=== PATIENT | male | born 1965 | race African-American/Black ===

== ENCOUNTER → 2021-08-08 11:10 | Outpatient (CLI) | payer OTHER, SELFPAY | PROVIDERS: Visit Provider Nurse Practitioner | DX: U07.1 COVID-19 (principal) | CPT/HCPCS: C9803; U0003; U0005 ==

== ENCOUNTER → 2023-09-29 14:14 | Outpatient (POV) | payer OTHER, SELFPAY ==
--- NOTE | 2023-09-29 14:21 | A.OFFVIS_ITS ---
HPI Data of Consult Patient: new to practice Consult date: 09/29/23 Requesting Physician: Margie Cantrell APRN Consult Narrative Reason for consult: Bilateral shoulder pain History of present illness: Mr. Ramirez is a 58 year old male who presents today as a new patient. He is a referral from [facility]. Today he rates his pain a 7 out of 10. Patient states he has pain in both shoulders. Patient states this has been going on for over a year and a half. 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 Patient does state the left shoulder is the worst shoulder and he feels like now that his right is bothering him more due to overcompensating. He describes his pain as a constant nagging pain that does interfere with sleeping as well as activities of daily living such as cooking and cleaning. Patient does state he is trying to hold off having shoulder surgery as long as possible. He does state that he has had injections in the past that would typically provide more than 50% improvement lasting several months. He does state that he was scheduled to have repeat injections in August however he was very busy with his work and was unable to get this done and was scheduled for follow-up this month however had issues with insurance. Patient has tried over-the- counter Tylenol and ibuprofen along with heat and ice and topicals with minimal relief. Patient has had physical therapy that did help. He has continued to do at home exercising and stretching for longer than 6 weeks with minimal relief. Patient is not on any scheduled medications. His Rl has been reviewed and is appropriate. CC: Margie Cantrell APRN [facility] Disclaimer: The information contained in this section may have been updated after the patient was seen, as this information can be updated by other users. Medical History (Updated 09/29/23 @ 14:58 by Margie Cantrell APRN) Cancer Diabetes HLD (hyperlipidemia) Surgical History (Updated 09/29/23 @ 14:57 by Shanthi Salgado RN) History of prostate surgery Family History (Updated 09/29/23 @ 14:56 by Shanthi Salgado RN) Other Cancer Diabetes Hyperlipidemia Social History Smoking Status: Never smoker alcohol intake: never substance use type: marijuana current occupational status: employed Travel in the last 8 weeks: None Review of Systems Review of Systems Review of systems:: pertinent systems reviewed and negative unless documented below Review of systems (narrative): Review of Systems: General: No recent weight changes, no fever, no sleep disturbances Respiratory: No cough, no shortness of air, no recurring pulmonary infections Cardiovascular/peripheral vascular: No chest pain, no palpitations, no edema, no shortness of breath Gastrointestinal: No new onset incontinence, normal bowel movements reported Genitourinary: No new onset incontinence Musculoskeletal: Bilateral shoulder pain Psychiatric: [Normal mood/affect] Neurological: [Denies weakness in extremities], [denies balance issues] Meds Home Medications and Allergies Home Medications Medication Instructions Recorded Confirmed Type atorvastatin 20 mg tablet 20 mg PO DAILY 11/23/18 08/19/19 History diclofenac sodium 75 mg 75 mg PO BID 11/23/18 08/19/19 History tablet,delayed release amoxicillin 500 mg capsule 500 mg PO Q12H sinus 10 days #20 08/19/19 08/19/19 Rx caps New Prescriptions to Start Prescriptions: Allergies Allergy/AdvReac Type Severity Reaction Status Date / Time No Known Allergies Allergy Verified 08/19/19 16:20 Objective Narrative: Physical Exam: General: Alert and oriented x3, no acute distress, pleasant and cooperative Lungs: Respirations even and unlabored, symmetrical chest expansion Eyes: PERRL Musculoskeletal: Flexion and extension of bilateral shoulders somewhat guarded secondary to pain Neurological: Speech clear, no gross sensory deficit Additional findings Additional findings: [facility] Left shoulder MRI without contrast 09/05/2022 Findings: Multiplanar MR imaging of the left shoulder was performed without contrast. Motion on many of the images decreases exam sensitivity. Small intrasubstance tear at the footprint of the supraspinatus tendon. There is an intrasubstance tear of the infraspinatus tendon involving less than 50% of the tendon thickness. There is no full-thickness rotator cuff tendon tear. There is moderate AC joint degenerative change. There is magnetic susceptibility artifact posteriorly and laterally that obscures some detail. A small amount of fluid is seen in the subacromial/subdeltoid bursa. The glenoid labrum is intact. The long head of the biceps tendon is intact. No significant glenohumeral joint effusion is seen. There is no evidence of fracture or dislocation. The musculature is intact. No evidence of soft tissue mass Documentation from orthopedics provider: Right shoulder AC joint arthrosis with partial rotator cuff tear Assessment and Plan *Assessment and plan (1) Bilateral shoulder pain: Status: Acute Qualifiers: Chronicity: chronic Qualified Code(s): M25.511 - Pain in right shoulder; M25.512 - Pain in left shoulder; G89.29 - Other chronic pain Category: Medical Code(s): M25.511 - Pain in right shoulder; M25.512 - Pain in left shoulder (2) Osteoarthritis of shoulders, bilateral: Status: Acute Qualifiers: Osteoarthritis type: unspecified Qualified Code(s): M19.011 - Primary osteoarthritis, right shoulder; M19.012 - Primary osteoarthritis, left shoulder Category: Medical Code(s): M19.011 - Primary osteoarthritis, right shoulder; M19.012 - Primary osteoarthritis, left shoulder Plan Patient is experiencing significant pain in his bilateral shoulders with limited range of motion. I have discussed with the patient that he may benefit from repeat intra-articular shoulder injections as well as possible suprascapular nerve blocks in the future. Risk and benefits of the intra-articular injections were explained to the patient and he would like to proceed forward with this plan of care. Patient has tried and failed conservative therapy such as oral medications, heat and ice, topicals, physical therapy, at home stretching exercise for longer than 6 weeks. Patient has had intra-articular injections in the past that did provide more than 50% relief lasting more than 3 months. I will also order the patient a compounded cream. Patient will be scheduled for bilateral intra-articular shoulder injections. Patient has been instructed to contact the clinic with any concerns before the next appointment. Dr. Sofia has reviewed this note and agrees with this plan of care. This note was dictated using voice recognition software and make contain errors or omissions.
[2023-09-29 14:55] VITALS: BP 134/79; PULSE 67; RESP 18; O2SAT 98; BMI 23.5
== END ==
PROVIDERS: PCP Nurse Practitioner Family; Visit Provider Nurse Practitioner Family
DX: M25.511 Pain in right shoulder (principal); M25.512 Pain in left shoulder; G89.29 Other chronic pain; M19.012 Primary osteoarthritis, left shoulder; M19.011 Primary osteoarthritis, right shoulder
CPT/HCPCS: 99202; G0463

== ENCOUNTER 2023-10-14 11:12 | Day surgery (SDC) | payer OTHER, SELFPAY ==
[2023-10-14 11:32] VITALS: BP 123/77; PULSE 75; RESP 16; TEMP 36.6; O2SAT 100; BMI 22.7
--- NOTE | 2023-10-14 11:52 | P.PCN_ITS ---
Procedure Date: 10/14/23 Time: 11:50 Anesthesiologist:: Jonathan Delacruz CRNA Complications:: None Pre-procedure Diagnosis:: DJD bilateral shoulders. Chronic bilateral shoulder pain. Post-procedure Diagnosis:: Same. Indications for Procedure:: Patient is a very pleasant 58-year-old male that comes our clinic today for bilateral intra-articular shoulder injections. Patient demonstrates 5/5 strength bilateral arms. However, limited range of motion secondary to shoulder pain bilaterally. He rates his pain 7/10. Procedure Details:: Informed consent was obtained risk and benefits of the procedure were explained to the patient. Patient was taken to the procedure room. The bilateral shoulder was prepped using ChloraPrep. A 25-gauge needle was used first anteriorly, laterally, and then posteriorly to inject 10 mL bupivacaine 0.25% and Depo- Medrol 40 mg. Same procedure was carried out in the left shoulder. Patient tolerated procedure without difficulty. There are no complications. Plan and Disposition:: Patient was discharged without incident.
[2023-10-14] MEDS: BUPIVACAINE 0.25% 10ML INJ 25 MG IJ (11:54)
[2023-10-14] MEDS: LIDOCAINE 1% 5ML PF VIAL 5 ML (11:54)
[2023-10-14] MEDS: methylPREDNISolone ACETATE 80MG/ML VIAL 80 MG (11:54)
[2023-10-14 11:55] VITALS: BP 128/58; PULSE 64; RESP 18; O2SAT 99
[2023-10-14 11:58] VITALS: BP 128/58; PULSE 68; RESP 18; O2SAT 99
[2023-10-14 12:00] VITALS: BP 133/85; PULSE 63; RESP 16; O2SAT 100
== END 2023-10-14 12:00 | disposition home or self-care (01) ==
PROVIDERS: PCP Nurse Practitioner Family; Visit Provider Nurse Anesthetist, Certified Registered
DX: M19.011 Primary osteoarthritis, right shoulder (principal); M19.012 Primary osteoarthritis, left shoulder; M25.511 Pain in right shoulder; M25.512 Pain in left shoulder; G89.29 Other chronic pain
CPT/HCPCS: 20610; J1040

== ENCOUNTER → 2023-10-31 14:13 | Outpatient (POV) | payer OTHER, SELFPAY ==
--- NOTE | 2023-10-31 14:17 | A.OFFVIS_ITS ---
[facility] Pain Management SOAP Note Subjective:: Patient is a pleasant 58-year-old male who presents today for follow-up of bilateral shoulder intra-articular injections on 10/14/2023. We are currently treating the patient for bilateral shoulder pain, osteoarthritis. Today he rates his pain a 4 out of 10. Patient denies any new trauma or injury. He does state that he has had at least 50% improvement following this injection and feels like he has been able to increase his activity with decreased pain symptoms. Patient does state he has overall improved function. Patient does also state that his compounded cream has provided additional relief. His Rl has been reviewed and is appropriate. Review of Systems: General: No recent weight changes, no fever, no sleep disturbances Respiratory: No cough, no shortness of air, no recurring pulmonary infections Cardiovascular/peripheral vascular: No chest pain, no palpitations, no edema, no shortness of breath Gastrointestinal: No new onset incontinence, normal bowel movements reported Genitourinary: No new onset incontinence Musculoskeletal: Shoulder pain Psychiatric: [Normal mood/affect] Neurological: [Denies weakness in extremities], [denies balance issues] Objective:: Physical Exam: General: Alert and oriented x3, no acute distress, pleasant and cooperative Lungs: Respirations even and unlabored, symmetrical chest expansion Eyes: PERRL Musculoskeletal: Flexion and extension of bilateral shoulders somewhat guarded secondary to pain, [antalgic gait noted] Neurological: Speech clear, no gross sensory deficit Assessment:: Bilateral shoulder pain, osteoarthritis shoulders Plan:: Patient has had significant improvement of his bilateral shoulder pain and does not require any additional injection therapy at this time. Patient will return to clinic in 1 month for reevaluation of symptoms and plan of care. Patient has been instructed to contact the clinic with any concerns before the next appointment. Dr. Sofia has reviewed this note and agrees with this plan of care. This note was dictated using voice recognition software and make contain errors or omissions. [facility] Disclaimer: The information contained in this section may have been updated after the patient was seen, as this information can be updated by other users. Medical History Cancer Diabetes HLD (hyperlipidemia) Surgical History History of prostate surgery Family History Other Cancer Diabetes Hyperlipidemia Social History Smoking Status: Never smoker alcohol intake: never substance use type: marijuana current occupational status: employed Travel in the last 8 weeks: None
[2023-10-31 14:58] VITALS: BP 143/91; PULSE 78; RESP 18; O2SAT 97; BMI 22.7
== END ==
LOC: SC.PAIN 14:13
PROVIDERS: Visit Provider Nurse Practitioner Family
DX: M19.011 Primary osteoarthritis, right shoulder (principal); M19.012 Primary osteoarthritis, left shoulder; M25.511 Pain in right shoulder; M25.512 Pain in left shoulder
CPT/HCPCS: 99212; G0463

== ENCOUNTER 2023-11-26 13:38 | Outpatient (POV) | payer OTHER, SELFPAY ==
--- NOTE | 2023-11-26 14:44 | A.OFFVIS_ITS ---
[facility] Pain Management SOAP Note Subjective:: Patient is a pleasant 58-year-old male who presents today for follow-up. We are currently treating the patient for bilateral shoulder pain/osteoarthritis bilateral shoulders today he rates his pain a 7 out of 10. Patient states he has continued to get significant improvement on his right shoulder following his intra-articular injection however states that the left shoulder is starting to increase in pain. He denies any new trauma or injury. He does state that the left shoulder is still much better than when he originally started coming to our office however he has noticed that the aching, throbbing sensation is starting to increase and is experiencing little bit more limited range of motion. Patient did previously have at least 50% improvement in both shoulders following this first intra-articular injections. He states he is interested in repeating the injection in his left shoulder due to the pain now interfering with his ability to perform activities of daily living such as cooking and cleaning. Patient is still using his compounded cream and states that helps additionally. His Rl has been reviewed and is appropriate. Review of Systems: General: No recent weight changes, no fever, no sleep disturbances Respiratory: No cough, no shortness of air, no recurring pulmonary infections Cardiovascular/peripheral vascular: No chest pain, no palpitations, no edema, no shortness of breath Gastrointestinal: No new onset incontinence, normal bowel movements reported Genitourinary: No new onset incontinence Musculoskeletal: Left shoulder pain Psychiatric: [Normal mood/affect] Neurological: [Denies weakness in extremities], [denies balance issues] Objective:: Physical Exam: General: Alert and oriented x3, no acute distress, pleasant and cooperative Lungs: Respirations even and unlabored, symmetrical chest expansion Eyes: PERRL Musculoskeletal: Flexion and extension of left shoulder somewhat guarded secondary to pain, [antalgic gait noted] Neurological: Speech clear, no gross sensory deficit Assessment:: Bilateral shoulder pain/osteoarthritis bilateral shoulders Plan:: Patient continues to get significant relief in his right shoulder however he is experiencing worsening pain in his left shoulder. I have discussed with the patient that he may benefit from a repeat intra-articular shoulder injection. Risk and benefits were discussed with patient and he would like to proceed forward with this plan of care. Patient did previously get 50% relief following his initial injection lasting approximately 1 month. Patient will be scheduled for a left shoulder intra-articular injection. Patient has been instructed to contact the clinic with any concerns before the next appointment. Dr. Sofia has reviewed this note and agrees with this plan of care. This note was dictated using voice recognition software and make contain errors or omissions. [facility] Disclaimer: The information contained in this section may have been updated after the patient was seen, as this information can be updated by other users. Medical History HLD (hyperlipidemia) Diabetes Cancer Surgical History History of prostate surgery Family History Other Cancer Diabetes Hyperlipidemia Social History Smoking Status: Never smoker alcohol intake: never substance use type: marijuana current occupational status: employed Travel in the last 8 weeks: None
[2023-11-26 15:10] VITALS: BP 130/78; PULSE 64; RESP 18; O2SAT 100; BMI 22.7
== END 2023-11-26 23:59 ==
LOC: SC.PAIN 13:39
PROVIDERS: Visit Provider Nurse Practitioner Family
DX: M19.011 Primary osteoarthritis, right shoulder (principal); M19.012 Primary osteoarthritis, left shoulder; M25.511 Pain in right shoulder; M25.512 Pain in left shoulder
CPT/HCPCS: 99212; G0463

== ENCOUNTER 2023-12-19 11:54 | Day surgery (SDC) | payer OTHER, SELFPAY ==
[2023-12-19 12:09] VITALS: BP 136/62; PULSE 74; RESP 16; TEMP 36.4; O2SAT 97; BMI 22.7
[2023-12-19] MEDS: BUPIVACAINE 0.25% 10ML INJ 25 MG IJ (12:18)
[2023-12-19] MEDS: LIDOCAINE 1% 5ML PF VIAL 5 ML (12:18)
[2023-12-19] MEDS: methylPREDNISolone ACETATE 80MG/ML VIAL 80 MG (12:18)
[2023-12-19 12:19] VITALS: BP 129/75; PULSE 66; RESP 18; O2SAT 99
[2023-12-19 12:20] VITALS: BP 129/75; PULSE 66; RESP 18; O2SAT 99
[2023-12-19 12:22] VITALS: BP 131/79; PULSE 66; RESP 16; O2SAT 97
--- NOTE | 2023-12-19 12:30 | P.PCN_ITS ---
Procedure Date: 12/19/23 Time: 12:10 Anesthesiologist:: Jonathan Delacruz CRNA Complications:: None Pre-procedure Diagnosis:: DJD left shoulder. Chronic left shoulder pain. Post-procedure Diagnosis:: Same. Indications for Procedure:: Patient is a very pleasant 58-year-old male comes our clinic today for intra- articular left shoulder injection. Patient demonstrates 5/5 strength. However, limited range of motion secondary to pain. He rates his pain 6/10. Procedure Details:: Procedure Details: Left shoulder intra-articular injection Informed consent was obtained risk and benefits of the procedure were explained to the patient. Patient was taken to the procedure room. The left shoulder was prepped using ChloraPrep. A 25-gauge needle was used first anteriorly, laterally, and then posteriorly to inject 10 mL bupivacaine 0.25% and Depo-M edrol 40 mg. Patient tolerated procedure well with no complications. Plan and Disposition:: Patient was discharged without incident.
== END 2023-12-19 12:22 | disposition home or self-care (01) ==
LOC: SC.PAINP 11:54
PROVIDERS: PCP Nurse Practitioner Family; Visit Provider Nurse Anesthetist, Certified Registered
DX: M19.012 Primary osteoarthritis, left shoulder (principal); M25.512 Pain in left shoulder; G89.29 Other chronic pain
CPT/HCPCS: 20610; J1010

== ENCOUNTER 2024-01-05 13:37 | Outpatient (POV) | payer OTHER, SELFPAY ==
[2024-01-05 13:49] VITALS: BP 109/55; PULSE 62; RESP 18; TEMP 36.8; O2SAT 98; BMI 23.0
--- NOTE | 2024-01-05 14:12 | A.OFFVIS_ITS ---
[facility] Pain Management SOAP Note Subjective:: Patient is a pleasant 58-year-old male who presents today for follow-up of left intra-articular shoulder injection on 12/19/2023. Today he rates his pain a 1 out of 10 in his left shoulder however states his right shoulder is an 8 out of 10. Patient does state he at least had 50 to 60% relief in the left shoulder and feels like it still helping. He does state he has had overall improved function and more range of motion since having this injection done. Patient does state that he regrets not going ahead and doing both shoulders when he was scheduled for this injection due to the worsening pain on the right side. Patient does not describe this as a chronic aching, throbbing sensation with limited range of motion and interferes with his ability perform activities of daily living such as cooking and cleaning. Patient does state that he has worked today and this seems to have aggravated his overall right shoulder pain. He is interested in repeating his injection for the right shoulder. He is prescribed compounded cream and states this is still helping him significantly. His Rl has been reviewed and is appropriate. Review of Systems: General: No recent weight changes, no fever, no sleep disturbances Respiratory: No cough, no shortness of air, no recurring pulmonary infections Cardiovascular/peripheral vascular: No chest pain, no palpitations, no edema, no shortness of breath Gastrointestinal: No new onset incontinence, normal bowel movements reported Genitourinary: No new onset incontinence Musculoskeletal: Right shoulder pain Psychiatric: [Normal mood/affect] Neurological: [Denies weakness in extremities], [denies balance issues] Objective:: Physical Exam: General: Alert and oriented x3, no acute distress, pleasant and cooperative Lungs: Respirations even and unlabored, symmetrical chest expansion Eyes: PERRL Musculoskeletal: Flexion and extension of right shoulder somewhat guarded secondary to pain, [antalgic gait noted] Neurological: Speech clear, no gross sensory deficit Assessment:: Bilateral shoulder pain, osteoarthritis Plan:: Patient is experiencing worsening pain in his right shoulder with limited range of motion. I have reviewed over the risk and benefits of the intra-articular injection and recommended that we can do his right shoulder due to the worsening pain. Patient would like to proceed forward with this plan of care. We will schedule the patient for a right shoulder intra-articular injection. Patient does on average get at least 50% relief following these injections lasting on average more than a month. Patient has been instructed to contact the clinic with any concerns before the next appointment. Dr. Sofia has reviewed this note and agrees with this plan of care. This note was dictated using voice recognition software and make contain errors or omissions. [facility] Disclaimer: The information contained in this section may have been updated after the patient was seen, as this information can be updated by other users. Medical History HLD (hyperlipidemia) Diabetes Cancer Surgical History History of prostate surgery Family History Other Cancer Diabetes Hyperlipidemia Social History Smoking Status: Never smoker alcohol intake: never substance use type: marijuana current occupational status: other Travel in the last 8 weeks: None
== END 2024-01-05 23:59 ==
LOC: SC.PAIN 13:38
PROVIDERS: Visit Provider Nurse Practitioner Family
DX: M19.011 Primary osteoarthritis, right shoulder (principal); M19.012 Primary osteoarthritis, left shoulder; M25.511 Pain in right shoulder; M25.512 Pain in left shoulder
CPT/HCPCS: 99212; G0463

== ENCOUNTER 2024-01-06 10:05 | Outpatient (CLI) | payer OTHER, SELFPAY | END 2024-01-06 23:59 | disposition home or self-care (01) | LOC: LAB.DROPOF 01-07 10:05 | PROVIDERS: PCP Student in an Organized Health Care Education/Training Program; Visit Provider Student in an Organized Health Care Education/Training Program | DX: N39.0 Urinary tract infection, site not specified (principal) | CPT/HCPCS: 87086 ==

== ENCOUNTER 2024-02-10 11:53 | Day surgery (SDC) | payer OTHER, SELFPAY ==
[2024-02-10 12:16] VITALS: BP 108/75; PULSE 65; RESP 18; TEMP 36.5; O2SAT 100; BMI 22.7
[2024-02-10 12:34] VITALS: BP 133/75; PULSE 56; RESP 18; O2SAT 97
--- NOTE | 2024-02-10 12:34 | P.PCN_ITS ---
Procedure Date: 02/10/24 Time: 12:15 Anesthesiologist:: Jonathan Delacruz CRNA Complications:: None Pre-procedure Diagnosis:: DJD right shoulder. Chronic right shoulder pain. Post-procedure Diagnosis:: Same. Indications for Procedure:: Is a very pleasant 58-year-old male that comes our clinic today for repeat right intra-articular shoulder injection of cortisone. Patient has had significant improvement in terms of his right shoulder pain with previous injections in the right shoulder. He rates his pain today 4/10. Procedure Details:: Procedure Details: Right shoulder intra-articular injection Informed consent was obtained risk and benefits of the procedure were explained to the patient. Patient was taken to the procedure room. The right shoulder was prepped using ChloraPrep. A 25-gauge needle was used first anteriorly, laterally, and then posteriorly to inject 10 mL bupivacaine 0.25% and Depo- Medrol 40 mg. Patient tolerated procedure well with no complications. Plan and Disposition:: Patient was discharged without incident.
[2024-02-10] MEDS: BUPIVACAINE 0.25% 10ML INJ 25 MG IJ (12:56)
[2024-02-10] MEDS: methylPREDNISolone ACETATE 80MG/ML VIAL 80 MG (12:56)
[2024-02-10] MEDS: LIDOCAINE 1% 5ML PF VIAL 5 ML (12:56)
== END 2024-02-10 12:35 | disposition home or self-care (01) ==
PROVIDERS: Visit Provider Nurse Anesthetist, Certified Registered
DX: M19.011 Primary osteoarthritis, right shoulder (principal); M25.511 Pain in right shoulder; G89.29 Other chronic pain
CPT/HCPCS: 20610

== ENCOUNTER 2024-02-19 16:16 | Emergency (ER) | payer OTHER, SELFPAY ==
[2024-02-19 16:25] VITALS: BP 132/78; PULSE 76; RESP 20; TEMP 36.8; O2SAT 97; BMI 22.8
--- NOTE | 2024-02-19 16:41 | ED_ITS ---
Discharge Plan Disposition Patient Disposition: Home, Self-Care Condition: Good Prescriptions Prescriptions: No Action atorvastatin 20 mg tablet 20 mg PO DAILY meloxicam 15 mg tablet 15 mg PO DAILY Patient Comments: TAKE 1 TABLET BY MOUTH ONCE DAILY Referrals Follow up/Referrals: Provider,Referral, [Primary Care Provider] - See instructions Royce Cantrell DO [Staff Physician] - See instructions Activity Restrictions/Add. Instructions Additional Instructions/Restrictions: Rest the extremity, apply ice for 15 minutes as tolerated three or four times per day, Wear the enirque wrap for compression, Elevate the extremity as tolerated while you are resting. Take ibuprofen for painif you can take this. Follow up with Dr. Cantrell (orthopedics). I put in a referral but you need to call his office and schedule an appointment. Follow up with your regular doctor. GO TO THE ER FOR ANY WORSENING SYMPTOMS Clinical Impressions Clinical Impression: Traumatic injury of left biceps brachii muscle Instructions Patient Instructions: DI for Arm Pain, How to Use a Sling Discharge ED Provider: Cristi Gallegos [facility] General Stated complaint: AO06/06@1400 LT bicep inj Mode of Arrival: Ambulatory Source of Information: Patient Limitations: No Limitations Time Seen by Provider: 02/19/24 16:41 Description of Symptoms (Recalled from Triage Doc. by RN): PATIENT C/O POSSIBLE PULLED MUSCLE TO LEFT BICEP AREA THAT HAPPENED WHILE HE WAS WORKING TODAY HEENT Symptoms (Recalled from RN notes): No Resp Symptoms (Recalled from RN notes): No Skin Symptoms (Recalled from RN notes): No MS Symptoms (Recalled from RN notes): Yes Functional Status (Recalled from RN notes): WNL History of Present Illness Provider Complaint: He states that he lifted something heavy at his work today. This caused his to pull his left bicep. Since then he has had swelling, tenderness and pain in the left bicep area. Related Data Home Medications Medication Instructions Recorded Confirmed atorvastatin 20 mg tablet 20 mg PO DAILY 11/23/18 02/19/24 meloxicam 15 mg tablet 15 mg PO DAILY 02/19/24 02/19/24 Allergies Allergy/AdvReac Type Severity Reaction Status Date / Time No Known Allergies Allergy Verified 01/06/24 11:03 Worker's Comp Is this a Worker's Comp case?: No [facility] Disclaimer: The information contained in this section may have been updated after the patient was seen, as this information can be updated by other users. Medical History HLD (hyperlipidemia) Diabetes Cancer Surgical History History of prostate surgery Family History Other Cancer Diabetes Hyperlipidemia Social History Smoking Status: Never smoker alcohol intake: never substance use type: marijuana current occupational status: other Travel in the last 8 weeks: None ROS Obtained: Yes All systems reviewed & no additional complaints except as documented Constitutional Constitutional: Denies chills, Denies fever(s) and Denies weakness Eyes Eyes: Denies eye discharge ENT Ears, Nose, Mouth, and Throat: Denies dizziness, Denies otalgia and Denies sore throat Cardiovascular Cardiovascular: Denies chest pain Respiratory Respiratory: Denies shortness of breath, Denies chest congestion, Denies cough, Denies stridor and Denies wheezing Gastrointestinal Gastrointestingal: Denies nausea or vomiting Musculoskeletal Musculoskeletal: Reports as per HPI and Denies tingling Integumentary/Breasts Skin/Breast: Denies redness, Denies rash and Denies wounds Neurologic Neurologic: Denies dizziness, Denies paresthesias, Denies radicular pain, Denies tingling and Denies weakness Allergic/Immunologic Allergic/Immunologic: Denies wheezing Physical Exam General General appearance: alert and in no apparent distress Head Head exam: atraumatic, normocephalic and normal inspection Eye Eye exam: Present normal appearance, PERRL and EOMI ENT ENT exam: Present normal exam, normal oropharynx, mucous membranes moist, TM's normal bilaterally and normal external ear exam Neck Neck exam: Present normal inspection, full ROM and trachea midline; Absent meningismus or lymphadenopathy Chest Chest inspection: Present normal inspection and symmetric chest wall rise; Absent tenderness Respiratory Respiratory exam: Present normal lung sounds bilaterally; Absent respiratory distress Cardiovascular Cardiovascular exam: Present regular rate and normal rhythm; Absent JVD Abdominal Exam Abdominal exam: Present soft and normal bowel sounds; Absent distention, tenderness or guarding Extremities Exam Extremities exam: Present normal capillary refill; Absent calf tenderness Expanded Upper Extremity Exam Left: Shoulder exam: Present normal inspection and full ROM; Absent tenderness or tenderness over AC joint Arm exam: Present full ROM and tenderness; Absent swelling, abrasion, laceration, ecchymosis, deformity, crepitus, erythema or other Elbow exam: Present normal inspection and full ROM; Absent tenderness Forearm/Wrist exam: Present normal inspection and full ROM; Absent tenderness Hand exam: Present normal inspection and full ROM; Absent tenderness Neuromotor exam: Normal wrist extension, thumb opposition, thumb IP flexion, thumb adduction and fingers 2-5 abduction Neurosensory exam: Normal radial nerve, ulnar nerve, median nerve and 2- point discrimination Vascular exam: Normal capillary refill, radial pulse, ulnar pulse and brachial pulse Back Exam Back exam: Present normal inspection; Absent tenderness Neurological Exam Neurological exam: Present alert and oriented X3 Psychiatric Psychiatric exam: Present normal affect and normal mood Skin Skin exam: Present warm, dry, intact and normal color Lymphatic Lymphatic Findings: no adenopathy Medical Decision Making Medical Records Medical records reviewed: No I reviewed the patient's medical records. Rl Inquiry Pt receiving controlled substance: No Vital Signs: 02/19/24 16:25 Temperature 98.3 F Temperature Source Oral Pulse Rate [Right Brachial] 76 Respiratory Rate 20 Blood Pressure [Right Arm] 132/78 Blood Pressure Mean [Right Arm] 96 Blood Pressure Source [Right Arm] Automatic Cuff Blood Pressure Position [Right Arm] Sitting 02 Sat by Pulse Oximetry 97 Oxygen Delivery Method Room Air Procedures Risk/Benefits of Procedure(s) Were Explained: Yes Orthopedic Splinting/Casting Injury #1: Side: left Upper Extremity Immobilizer: sling Lower Extremity Immobilizer: applied by nurse/dr luu Post Cast/Splinting Neuro Status: intact and no change Post Cast/Splinting Vasc Status: intact and no change
[2024-02-19 17:01] VITALS: BP 132/78; PULSE 76; RESP 20; TEMP 36.8; O2SAT 97
== END 2024-02-19 17:10 | disposition home or self-care (01) ==
PROVIDERS: Emergency Provider Nurse Practitioner Family
DX: S46.202A Unspecified injury of muscle, fascia and tendon of other parts of biceps, left arm, initial encounter (principal); M79.622 Pain in left upper arm; X50.0XXA Overexertion from strenuous movement or load, initial encounter
CPT/HCPCS: 99203; 99212; G0463

== ENCOUNTER 2024-02-23 10:11 | Outpatient (CLI) | payer OTHER, SELFPAY ==
[2024-02-23 12:02] LABS: Blood Urea Nitrogen 19 mg/dl (9-20); Estimated Glomerular Filt Rate 99 ml/min (>60); GFR (African American) 119 ML/MIN (>60)
[2024-02-24 09:15] LABS: PSA, Free <0.02 ng/mL; Prostate Specific Ag <0.1 ng/mL (0.0-4.0)
== END 2024-02-23 23:59 | disposition home or self-care (01) ==
LOC: LAB 10:12
PROVIDERS: Visit Provider Urology
DX: N52.9 Male erectile dysfunction, unspecified (principal); N39.3 Stress incontinence (female) (male); C61 Malignant neoplasm of prostate
CPT/HCPCS: 36415; 82565; 84153; 84154; 84520

== ENCOUNTER 2024-03-02 08:45 | Outpatient (CLI) | payer OTHER, SELFPAY ==
--- NOTE | 2024-03-02 08:48 | XR_ITS ---
FINAL REPORT CLINICAL HISTORY: lt humerus pain COMPARISON: None FINDINGS: 3 views show no evidence of an acute, displaced fracture or dislocation of the visualized bony architecture. The joint spaces appear normal. IMPRESSION: Unremarkable exam. Reviewed, Interpreted and Dictated by Erik Velazco MD Transcribed by Joyce Helm Authenticated and [facility]
== END 2024-03-02 23:59 | disposition home or self-care (01) ==
LOC: RAD 08:46
PROVIDERS: Visit Provider Physician Assistant Surgical
DX: M79.602 Pain in left arm (principal); S46.202A Unspecified injury of muscle, fascia and tendon of other parts of biceps, left arm, initial encounter
CPT/HCPCS: 73060

== ENCOUNTER 2024-03-22 20:14 | Outpatient (CLI) | payer OTHER, SELFPAY ==
[2024-03-22 21:04] LABS: Basophils % 0.7 % (0.1-2.0); Eosinophils # 0.2 K/mm3 (0.0-0.4); Eosinophils % 3.1 % (0.1-12.0); Hematocrit 40.2 % (42.0-52.0); Hemoglobin 12.9 g/dL (14.1-18.0); Lymphocytes # 2.4 K/mm3 (0.7-4.5); Lymphocytes % 45.5 % (10-50); Mean Corpuscular Hemoglobin 25.2 pg (27.0-31.2); Mean Corpuscular Volume 78.7 fl (80-94); Monocytes # 0.4 K/mm3 (0.1-1.0); Monocytes % 8.2 % (1.7-9.3); Neutrophils # 2.3 K/mm3 (1.8-7.8); Neutrophils % 42.6 % (37.0-80.0); Platelet Count 147 K/mm3 (142-424); Red Blood Count 5.11 M/mm3 (4.60-6.20); Red Cell Distribution Width 15.8 % (11.5-17.5); White Blood Count 5.3 K/mm3 (4.8-10.8)
[2024-03-22 21:13] LABS: Creatinine,Urine Random 73 mg/dL (Not Estab.)
[2024-03-22 21:16] LABS: Microalbumin/Creatinine Ratio 8.9
[2024-03-22 21:21] LABS: Alanine Aminotransferase 33 U/L (12-78); Albumin Level 4.2 g/dl (3.5-5.0); Albumin/Globulin Ratio 1.8 (1.1-1.8); Alkaline Phosphatase 56 U/L (38-126); Anion Gap 8.4 mEq/L (5-15); Aspartate Amino Transferase 35 U/L (17-59); Bilirubin,Total 0.6 mg/dl (0.2-1.3); Blood Urea Nitrogen 17 mg/dl (9-20); Calcium 9.7 mg/dl (8.4-10.2); Carbon Dioxide 27 mmol/L (22.0-30.0); Chloride 108 mmol/L (98-107); Chol/HDL Ratio 2.8 (1-3.5); Cholesterol 153 mg/dl (140-200); Estimated Glomerular Filt Rate 86 ml/min (>60); GFR (African American) 104 ML/MIN (>60); Globulin 2.4 g/dL (1.3-3.2); Glucose 90 mg/dl (74-100); HDL Cholesterol 55 mg/dl (40-60); Potassium 4.4 mmoL/L (3.5-5.1); Sodium 139 mmol/L (136-145); Total Protein,Serum 6.6 g/dl (6.3-8.2); Triglycerides 84 mg/dl (30-150); VLDL Cholesterol 17 mg/dL (0-40)
[2024-03-22 21:31] LABS: Direct LDL Cholesterol 71.47 mg/dL (100-129)
[2024-03-22 21:38] LABS: 25-OH Vitamin D, Total 24.2 ng/mL (30-100)
[2024-03-22 21:51] LABS: Thyroid Stimulating Hormone 0.94 uIU/mL (0.465-4.68)
== END 2024-03-22 23:59 | disposition home or self-care (01) ==
LOC: LAB.DROPOF 20:16
PROVIDERS: PCP Internal Medicine; Visit Provider Internal Medicine
DX: C61 Malignant neoplasm of prostate (principal); R32 Unspecified urinary incontinence
CPT/HCPCS: 80050; 80053; 80061; 82043; 82306; 82570; 83036; 84443; 85025

== ENCOUNTER 2024-03-22 20:20 | Outpatient (CLI) | payer OTHER, SELFPAY | END 2024-03-22 23:59 | disposition home or self-care (01) | LOC: LAB.DROPOF 20:20 | PROVIDERS: PCP Internal Medicine; Visit Provider Internal Medicine | DX: R32 Unspecified urinary incontinence (principal) ==

== ENCOUNTER 2024-07-27 12:29 | Outpatient (CLI) | payer OTHER, SELFPAY ==
--- NOTE | 2024-07-27 12:38 | XR_ITS ---
FINAL REPORT CLINICAL HISTORY: left shoulder pain COMPARISON: None FINDINGS: LEFT SHOULDER 3 views demonstrate no acute fracture or dislocation. There is mild AC joint degenerative change. The visualized bony structures are well aligned. No soft tissue abnormality is seen. IMPRESSION: Mild degenerative change without acute process. Reviewed, Interpreted and Dictated by Rico Antunez III, MD Transcribed by Joyce Helm Authenticated and [facility]
--- NOTE | 2024-07-27 12:38 | XR_ITS ---
FINAL REPORT CLINICAL HISTORY: right shoulder pain COMPARISON: None FINDINGS: RIGHT SHOULDER Three views demonstrate no acute fracture or dislocation. The joint spaces appear normal. The visualized bony structures are well aligned. No soft tissue abnormality is seen. IMPRESSION: No acute process. Reviewed, Interpreted and Dictated by Rico Antunez III, MD Transcribed by Joyce Helm Authenticated and [facility]
== END 2024-07-27 23:59 | disposition home or self-care (01) ==
LOC: RAD 12:32
PROVIDERS: PCP Internal Medicine; Visit Provider Internal Medicine
DX: M25.511 Pain in right shoulder (principal); M25.512 Pain in left shoulder
CPT/HCPCS: 73030

== ENCOUNTER 2024-08-16 08:00 | Outpatient (CLI) | payer OTHER, SELFPAY | END 2024-08-16 23:59 | disposition home or self-care (01) | LOC: RAD 08:01 | PROVIDERS: PCP Internal Medicine; Visit Provider Physician Assistant Surgical | DX: M54.2 Cervicalgia (principal) ==

== ENCOUNTER 2024-08-17 07:05 | Outpatient (CLI) | payer OTHER, SELFPAY ==
--- NOTE | 2024-08-17 07:06 | MR_ITS ---
FINAL REPORT CLINICAL HISTORY: evaluate c-spine. LEFT SHOULDER AND ARM PAIN COMPARISON: None FINDINGS: Multiplanar MR imaging of the cervical spine was performed without contrast. On the sagittal T2-weighted images, disc degeneration is seen at multiple levels. There is no evidence of fracture. The vertebral alignment is normal. There is a vague 4 mm focus of increased signal in the cervical cord at the C3 level, that may represent myelomalacia or a focus of demyelination. The cervicomedullary junction is normal. C2-3: Uncovertebral osteophytes are present without significant canal stenosis or neural foraminal narrowing. C3-4: An annular bulge is present with uncovertebral osteophytes and moderate left neural foraminal narrowing. C4-5: Disc osteophyte complex is present with mild right and moderate left neural foraminal narrowing. C5-6: Disc osteophyte complex is present, with severe bilateral neural foraminal narrowing and mild canal stenosis, with an AP canal diameter of 9 mm. C6-7: Disc osteophyte complex is present, with mild bilateral neural foraminal narrowing. C7-T1: Disc osteophyte complex is present, with moderate bilateral neural foraminal narrowing. There is a left foraminal disc protrusion which extends beyond the osteophytes. T1-T2: Disc osteophyte complex is present, with moderate bilateral neural foraminal narrowing. IMPRESSION: Multilevel cervical degenerative change is present, most severe at the C5-6 level. 4 mm vague focus of increased signal in the cord at the C3 level, that may represent myelomalacia or a focus of demyelination. Reviewed, Interpreted and Dictated by Rico Antunez III, MD Transcribed by Karina Gardiner Authenticated and [facility]
== END 2024-08-17 23:59 | disposition home or self-care (01) ==
LOC: RAD 07:06
PROVIDERS: PCP Internal Medicine; Visit Provider Physician Assistant Surgical
DX: M54.12 Radiculopathy, cervical region (principal)
CPT/HCPCS: 72141

== ENCOUNTER 2024-09-17 11:15 | Outpatient (CLI) | payer OTHER, SELFPAY ==
[2024-09-21 06:11] LABS: Trichomonas Vaginalis, NAA Negative (Negative)
== END 2024-09-17 23:59 | disposition home or self-care (01) ==
LOC: LAB.DROPOF 09-18 10:07
PROVIDERS: PCP Internal Medicine; Visit Provider Internal Medicine
DX: R39.9 Unspecified symptoms and signs involving the genitourinary system (principal); R32 Unspecified urinary incontinence
CPT/HCPCS: 87086; 87661

== ENCOUNTER 2025-07-15 08:00 | Outpatient (RCR) | payer OTHER, SELFPAY ==
--- NOTE | 2025-06-22 09:41 | HMH.OTOPEV ---
OT Evaluation Rehab OT Outpatient Eval Start: 06/22/25 08:06 Freq: Status: Active Protocol: Document 06/22/25 09:25 KAYLA (Rec: 06/22/25 09:39 MISHASAE [id number]) E-signed By Suzy Carrera, OT Outpatient Therapy Subjective History Subjective History 60-year-old male referred to skilled outpatient occupational therapy services for bilateral shoulder pain. Patient reports experiencing pain in both shoulders for the past 5 years, with symptoms progressively worsening. He states that MRIs of both shoulders completed approximately 1?2 years ago at another facility revealed tears in both shoulders. A recent right shoulder X-ray completed at [facility] in July 2024 showed no acute fracture. Patient reports receiving multiple cortisone injections from two different orthopedic surgeons over the past 5 years. He also reports participating in therapy previously, which temporarily improved his shoulder pain. Currently presents with recurrent and worsening bilateral shoulder pain, warranting skilled OT intervention. Chief Complaint Pain Symptom Type Numbness,Tingling Symptoms Relieved By Nothing Symptoms Aggravated Physical Activity By Prior Functional None Limitations Current Functional Reaching,Lifting Limitations Symptom Description Constant and Continuous Level of pain today 7 (0-10) Pain scale - at its 7 best (0-10) Pain scale - at its 8 worst (0-10) Shoulder/Elbow Eval Shoulder Objective Measurements Shoulder ROM Right Shoulder Abduction 90 Active Range of Motion (degrees) Shoulder Flexion 110 Active Range of Motion (degrees) Query Text: Shoulder External 50 Rotation Active Range of Motion ( degrees) Shoulder Internal 55 Rotation Active Range of Motion ( degrees) pain with active ROM right shoulder exam standard Left Shoulder Abduction 80 Active Range of Motion (degrees) Shoulder Flexion 120 Active Range of Motion (degrees) Query Text: Shoulder External 60 Rotation Active Range of Motion ( degrees) Shoulder Internal 60 Rotation Active Range of Motion ( degrees) Shoulder MMT Bilateral Shoulder Abduction 3- Fair- Strength Grade Shoulder Extension 3- Fair- Strength Grade Shoulder Flexion 3- Fair- Strength Grade Shoulder Horizontal 3- Fair- Abduction Strength Grade Shoulder Horizontal 3- Fair- Adduction Strength Grade Infraspinatus/Teres 3- Fair- Minor Strength Grade Shoulder External 3- Fair- Rotation Strength Grade Shoulder Internal 3- Fair- Rotation Strength Grade Elbow Objective Measurements QuickDASH Activities Please rate your ability to do the following activities in the last week by selecting the number below the appropriate response. 1. Open a tight or Severe difficulty new jar. 2. Do heavy Unable planning intern (e. g., wash sanchez, floors). 3. Carry a shopping Mild difficulty bag or briefcase. 4. Wash your back. Unable 5. Use a knife to Moderate difficulty cut food. 6. Recreational Severe difficulty activities in which you take some force or impact through your arm, shoulder, or hand (e.g., golf, hammering, tennis, etc.). 7. During the past Quite a bit week, to what extent has your arm, shoulder or hand problem interfered with your normal social activities with family, friends , neighbors or groups? 8. During the past Moderately limited week, were you limited in your work or other regular daily activites as a result of your arm, shoulder or hand problem? 9. Arm, shoulder or Severe hand pain. 10. Tingling (pins Severe and needles) in your arm, shoulder or hand. 11. During the past Severe difficulty week, how much difficulty have you had sleeping because of the pain in your arm, shoulder or hand? Quick DASH 42 OT Patient Goals OT Patient Goals OT Short Term 1. Patient will demonstrate increased bilateral Patient Goals shoulder AROM by at least 10?15 degrees in flexion and abduction to improve ability to complete overhead ADLs. 2. Patient will report a decrease in shoulder pain by at least 2 points on a 0?10 pain scale during functional reaching tasks. 3. Patient will be independent with home exercise program (HEP) focused on pain management, stretching, and gentle strengthening. 4. Patient will tolerate light resistance exercises with minimal discomfort to promote improved shoulder stability ~10 mins. OT [facility] Patient 1. Patient will demonstrate functional shoulder AROM Goals within normal limits to perform self-care and household activities without pain. 2. Patient will report pain =2/10 during daily activities and sleep. 3. Patient will demonstrate improved upper extremity strength to at least 4+/5 in both shoulders to support overhead and lifting tasks. 4. Patient will be able to complete ADLs and light IADLs independently without limitations from shoulder pain. OT Outpatient Assessment Impairments Problems/Impairments Impaired Range of Motion,Impaired Strength,Subjective C /O Pain Prognosis Rehab Potential Good Clinical Impression Consistent with Yes Diagnosis Outpatient Therapy Plan of Care Treatment Plan May Include Therapeutic Exercise Yes Including Home Exercise Program Manual Therapy Yes Techniques Therapeutic Yes Activities to Return to Previous Functional/Work Level Thermal Modalities Yes Electrical Yes Stimulation Ultrasound/ Yes Phonophoresis Iontophoresis Yes Eval/Re-Eval Yes Frequency Times per week 2x/wk Duration Number of Weeks 4 weeks Addendums This patient is a No candidate for social or vocational rehab ? Patient/Guardian Yes verbally acknowledges understanding of treatment program and consents to further treatment? Patient/Guardian Yes verbally acknowledges understanding of diagnosis, prognosis and goals for treatment? Eval Complexity OT Charge 73310 - Low Complexity PHYSICIAN CERTIFICATION: I certify the specified therapy services for Seb Ramirez are required, authorized, and reviewed every 30 days.
== END 2025-07-15 23:59 | disposition home or self-care (01) ==
LOC: OT 08:00
PROVIDERS: Visit Provider Internal Medicine
DX: M25.512 Pain in left shoulder (principal); M25.511 Pain in right shoulder
CPT/HCPCS: 97014; 97032; 97110; 97140; 97165; 97530; G0283

== ENCOUNTER 2025-07-29 09:01 | Outpatient (CLI) | payer OTHER, SELFPAY ==
--- NOTE | 2025-07-29 09:03 | XR_ITS ---
FINAL REPORT CLINICAL HISTORY: left upper back pain near scapula FINDINGS: No fracture is seen. Alignment is normal. No significant degenerative changes are seen. There is a calcified mass projecting in the left upper quadrant. Recommend CT correlation if not previously performed. IMPRESSION: Unremarkable thoracic spine series. Incidental left upper quadrant bulky calcification. Recommend CT correlation if not previously performed. Reviewed, Interpreted and Dictated by Erik Velazco MD Transcribed by Brunilda Kamara Authenticated and . [facility]
--- OUTSIDE RECORDS SUMMARY | 2025-07-29 09:06 | XMS_ITS | Encounter Summary ---
Author Organization [facility] Address [address] [place] [address] Care Team Providers Care Youth Specialist Name Role Phone Gaudencio Luna Coreas APRN Primary Care Provider [phone] [phone] Encounter Details Date Type Department Care Team (Late st Contact Info) Description 09/05/2022 Outside Procedure External Location [address] [place] [address] Provider, Devante [place] Social History Tobacco Use Types Packs/Day Years Used Date Smoking Tobacco: Former Cigarettes 0.5 12 Smokeless Tobacco: Never Alcohol Use Standard Drinks/Week Comments No 0 (1 standard drink = 0.6 oz pure alcohol) Alcoholic Drinks/day: Consumes alcohol PHQ-2 Answer Date Recorded Patient Health Questionnaire-2 Score 0 02/26/2021 Sex and Gender Information Value Date Recorded Sex Assigned at Not on file Legal Sex Male 5:55 PM EDT Gender Identity Not on file Sexual Orientation Not on file documented as of this encounter Plan of Treatment Not on file documented as of this encounter Procedures Procedure Name Priority Date/Time Associated Diagnosis Comments MR SHOULDER RIGHT WO IV CONTRAST 09/05/2022 3:13 PM EST documented in this encounter Results * MR Shoulder Right wo IV Contrast (09/05/2022 3:13 PM EST) Anatomical Region Laterality Modality Upper Extremities Right Magnetic Reson ance 09/05/2022 3:13 PM EST Narrative 09/06/2022 7:40 AM EST [address] [address] Name: GUNNER RAMIREZ Exam Date: 09/05/2022 : 1965 Age 57 Gender: M Physician: TEE PONCE Facility: [facility] Facility HSV: Outpatient Exam: MRI SHOULDER W/O RIGHT FINAL REPORT CLINICAL HISTORY: C/o chronic bilateral shoulder pain and decreased ROM. Pt works a strenuous job caring for horses x25 years. No hx of surgery or injury to BUE. FINDINGS: Multiplanar MR imaging of the right shoulder was performed without contrast. There is a small intrasubstance tear of the infraspinatus tendon involving less than 50% of tendon thickness. There is no full-thickness rotator cuff tendon tear. There is mild AC joint degenerative change. A small amount of fluid is seen in the subacromial/subdeltoid bursa. The glenoid labrum is intact. The long head of the biceps tendon is intact. No significant glenohumeral joint effusion is seen. There is no evidence of fracture or dislocation. The musculature is intact. There is no evidence of soft tissue mass. IMPRESSION: Intrasubstance tear of the infraspinatus tendon, less than 50%. Mild AC joint arthrosis. Reviewed, Interpreted and Dictated by Rico Antunez III, MD Transcribed by Woody De Jesus Authenticated and EASTERN Dictated By: Rico Antunez III Transcribed By: Transcribed On: 09/06/2022 7:27 AM Electronically signed by: Rico Antunez III 09/06/2022 Thank you for referring GUNNER RAMIREZ to [facility]. Legally authenticated by MAHSA Guajardo III 2022-09-06 07:27:24 Procedure Note Provider, Generic [place] - 09/06/[address] [address] Name: GUNNER RAMIREZ Exam Date: 09/05/2022 : 1965 Age 57 Gender: M Physician: TEE PONCE Facility: [facility] Facility HSV: Outpatient Exam: MRI SHOULDER W/O RIGHT FINAL REPORT CLINICAL HISTORY: C/o chronic bilateral shoulder pain and decreased ROM. Pt works a strenuous job caring for horses x25 years. No hx of surgery or injury to BUE. FINDINGS: Multiplanar MR imaging of the right shoulder was performed without contrast. There is a small intrasubstance tear of the infraspinatus tendon involving less than 50% of tendon thickness. There is no full-thickness rotator cuff tendon tear. There is mild AC joint degenerative change. A small amount of fluid is seen in the subacromial/subdeltoid bursa. The glenoid labrum is intact. The long head of the biceps tendon is intact. No significant glenohumeral joint effusion is seen. There is no evidence of fracture or dislocation. The musculature is intact. There is no evidence of soft tissue mass. IMPRESSION: Intrasubstance tear of the infraspinatus tendon, less than 50%. Mild AC joint arthrosis. Reviewed, Interpreted and Dictated by Rico Antunez III, MD Transcribed by Woody De Jesus Authenticated and EASTERN Dictated By: Rico Anutnez III Transcribed By: Transcribed On: 09/06/2022 7:27 AM Electronically signed by: Rico Antunez III 09/06/2022 Thank you for referring GUNNER RAMIREZ to [facility]. Legally authenticated by MAHSA Guajardo III 2022-09-06 07:27:24 us Generic [place] Provider IMG MRI PROCEDURES F inal Result documented in this encounter Visit Diagnoses Not on filedocumented in this encounter Additional Health Concerns Assessment Noted Time A fall risk assessment has been complete d for the patient 03/21/2022 7:58 AM EDT documented as of this encounter Care Teams Youth Specialist Relationship Specialty Start Date End Date Luna Ratliff APRN [address] [place] [address] PCP - General 01/26/21 documented as of this encounter
--- OUTSIDE RECORDS SUMMARY | 2025-07-29 09:06 | XMS_ITS | Encounter Summary ---
Author Organization [facility] Address [address] [place] [address] Care Team Providers Care Contract Officer Name Role Phone Gaudencio Luna Coreas APRN Primary Care Provider [phone] Encounter Details Date Type Department Care Team (Late st Contact Info) Description 09/05/2022 Outside Procedure External Location [address] [place] [address] Provider, Devante [facility] Social History Tobacco Use Types Packs/Day Years [...] Priority Date/Time Associated Diagnosis Comments MR SHOULDER LEFT WO IV CONTRAST 09/05/2022 3:13 PM EST documented in this encounter Results * MR Shoulder Left wo IV Contrast (09/05/2022 3:13 PM EST) Anatomical Region Laterality Modality Upper Extremities Left Magnetic Reson ance 09/05/2022 3:13 PM EST Narrative 09/06/2022 7:40 AM EST [address] [address] Name: GUNNER RAMIREZ Exam Date: 09/05/2022 : 1965 Age 57 Gender: M Physician: TEE PONCE Facility: [facility] Facility HSV: Outpatient Exam: MRI SHOULDER W/O LEFT FINAL REPORT CLINICAL HISTORY: C/o chronic bilateral shoulder pain and decreased ROM. Pt works a strenuous job caring for horses x25 years. No hx of surgery or injury to BUE. FINDINGS: Multiplanar MR imaging of the left shoulder was performed without contrast. Motion on many of the images decreases exam sensitivity. There is a small intrasubstance tear at the footprint of the supraspinatus tendon. There is an intrasubstance tear of the infraspinatus tendon involving less than 50% of tendon thickness. There is no full-thickness rotator cuff tendon tear. There is moderate AC joint degenerative change. There is magnetic susceptibility artifact posteriorly and laterally that obscures some detail. A small amount of fluid is seen in the subacromial/subdeltoid bursa. The glenoid labrum is intact. The long head of the biceps tendon is intact. No significant glenohumeral joint effusion is seen. There is no evidence of fracture or dislocation. The musculature is intact. There is no evidence of soft tissue mass. IMPRESSION: Intrasubstance tears of the supraspinatus and infraspinatus tendons, less than 50%. Moderate AC joint arthrosis. Reviewed, Interpreted and Dictated by Rico Antunez III, MD Transcribed by Woody De Jesus Authenticated and EASTERN Dictated By: Rico Antunez III Transcribed By: Transcribed On: 09/06/2022 7:27 AM Electronically signed by: Rico Antunez III 09/06/2022 Thank you for referring GUNNER RAMIREZ to [facility]. Legally authenticated by MAHSA Guajardo III 2022-09-06 07:27:23 Procedure Note Provider, [facility] - 09/06/[address] [address] Name: GUNNER RAMIREZ Exam Date: 09/05/2022 : 1965 Age 57 Gender: M Physician: TEE PONCE Facility: [facility] Facility HSV: Outpatient Exam: MRI SHOULDER W/O LEFT FINAL REPORT CLINICAL HISTORY: C/o chronic bilateral shoulder pain and decreased ROM. Pt works a strenuous job caring for horses x25 years. No hx of surgery or injury to BUE. FINDINGS: Multiplanar MR imaging of the left shoulder was performed without contrast. Motion on many of the images decreases exam sensitivity. There is a small intrasubstance tear at the footprint of the supraspinatus tendon. There is an intrasubstance tear of the infraspinatus tendon involving less than 50% of tendon thickness. There is no full-thickness rotator cuff tendon tear. There is moderate AC joint degenerative change. There is magnetic susceptibility artifact posteriorly and laterally that obscures some detail. A small amount of fluid is seen in the subacromial/subdeltoid bursa. The glenoid labrum is intact. The long head of the biceps tendon is intact. No significant glenohumeral joint effusion is seen. There is no evidence of fracture or dislocation. The musculature is intact. There is no evidence of soft tissue mass. IMPRESSION: Intrasubstance tears of the supraspinatus and infraspinatus tendons, less than 50%. Moderate AC joint arthrosis. Reviewed, Interpreted and Dictated by Rico Antunez III, MD Transcribed by Woody De Jesus Authenticated and EASTERN Dictated By: Rico Antunez III Transcribed By: Transcribed On: 09/06/2022 7:27 AM Electronically signed by: Rico Antunez III 09/06/2022 Thank you for referring GUNNER RAMIREZ to [facility]. Legally authenticated by MAHSA Guajardo III 2022-09-06 07:27:23 us Generic [facility] Provider IMG MRI PROCEDURES F inal Result documented in this encounter Visit Diagnoses Not on filedocumented in this encounter Additional Health Concerns Assessment Noted Time A fall risk assessment has been complete d for the patient 03/21/2022 7:58 AM EDT documented as of this encounter Care Teams Contract Officer Relationship Specialty Start Date End Date Luna Ratliff APRN [address] [place] [address] PCP - General 01/26/21 documented as of this encounter
--- OUTSIDE RECORDS SUMMARY | 2025-07-29 09:06 | XMS_ITS | Clinical Summary ---
Author Organization [facility] Address [address] [place] [address] Care Team Providers Care Accounting Director Name Role Phone Ratliff, Luna Lyudmila JULISA Primary Care Provider Allergies No known active allergies Medications clotrimazole (Lotrimin) 1 % creamIndications:C andidiasis Apply topically 2 (two) times a day. 30 g 2 03/11/20 23 Active Additional Information Patient not taking.Reported on 10/28/2024 atorvastatin (Lipitor) 20 MG tabletIndications: Mixed hyperlipidemia Take 1 tablet by mouth once daily 90 tablet 2 09/05/20 23 Active Additional Information Patient not taking.Reported on 10/28/2024 meloxicam (Mobic) 15 MG tabletIndications: Arthralgia of multiple joints Take 1 tablet (15 mg) by mouth 1 (one) time each day. 90 tablet 03/01/20 24 Active oxybutynin XL (Ditropan-XL) 10 MG 24 hr tablet Take 1 tablet (10 mg) by mouth 1 (one) time each day. 07/18/20 24 Active busPIRone (Buspar) 7.5 MG tablet Take 1 tablet (7.5 mg) by mouth 3 (three) times a day. 07/21/20 24 Active celecoxib (CeleBREX) 200 MG capsule Take 1 capsule (200 mg) by mouth 2 (two) times a day. 10/02/19 25 Active traMADol (Ultram) 50 MG tablet TAKE 1 TABLET BY MOUTH THREE TIMES DAILY NEEDED FOR SHOULDER PAIN 07/25/20 24 Active Active Problems Problem Noted Date Diagnosed Date Prostate cancer 03/09/2019 Anemia 12/31/2018 BPH (benign prostatic hyperplasia) 10/07/2018 ED (erectile dysfunction) 11/27/2015 Resolved Problems Problem Noted Date Diagnosed Date Resolved Date Arthralgia of multiple joints 02/23/2020 02/26/2021 Family History Medical History Relation Name Comments Conversions - Other Father No known health problems Conversions - Other Mother No known health problems Conversions - Other Other No known health problems Relation Name Status Comments Father Mother Other Social History Tobacco Use Types Packs/Day Years Used Date Smoking Tobacco: Former Cigarettes 0.5 12 0 02/1993 - 02/2005 Passive Smoke Exposure: Past Smokeless Tobacco: Never Tobacco Cessation:Counseling Given: Not Answered Alcohol Use Standard Drinks/Week Comments No 0 (1 standard drink = 0.6 oz pure alcohol) Alcoholic Drinks/day: Consumes alcohol PHQ-2 Answer Date Recorded Patient Health Questionnaire-2 Score 0 05/08/2023 PHQ-2A Answer Date Recorded Patient Health Questionnaire-2 Score 0 05/08/2023 Sex and Gender Information Value Date Recorded Sex Assigned at Not on file Legal Sex Male 5:55 PM EDT Gender Identity Not on file Sexual Orientation Not on file Last Filed Vital Signs Vital Sign Reading Time Taken Comments Blood Pressure 124/83 10/28/2024 8:56 AM EST Pulse 82 10/28/2024 8:56 AM EST Temperature 36.7 C (98 F) 02/26/2021 7:35 AM EDT Respiratory Rate 16 04/14/2020 9:10 AM EDT Oxygen Saturation 97% 10/28/2024 8:56 AM EST Inhaled Oxygen Concentration - - Weight 69.1 kg (152 lb 5.4 oz) 10/28/2024 8:56 A M EST Height 170.2 cm (5' 7 ) 05/08/2023 3:44 PM EDT Body Mass Index 23.86 05/08/2023 3:44 PM EDT Plan of Treatment Health Maintenance Due Date Last Done Comments [facility]-HIV Screening 1965 [facility]-Hepatitis C Screening 1965 [facility]-Infant/Child/Adol SDOH Screenings 1965 [facility]- SDOH Screenings 1981 [facility]-Adult SDOH Screenings 1981 [facility]-Pneumococcal Vaccine: 50+ Years (1 of 2 - PCV) 1982 [facility]-Zoster Vaccines (1 of 2) 1982 [facility]-DTaP,Tdap,and Td Vaccines (1 - Tdap) 11/17/1996 11/16/1996 CT Colonography 2008 FIT-DNA 2008 FIT 2008 FOBT 2008 Sigmoidoscopy 2008 [facility]-Depression Screening 05/08/2024 05/08/2023 [id number] Vaccine (4 - season) 2025 08/31/2021, 12/27/2020, 11/29/2020 [facility]-Influenza Vaccine (#1) 05/16/202510/21, 06/05/2023, 08/17/2022, Additional history exists Colonoscopy 01/06/2029 01/06/2019 [facility]-Colorectal Cancer Screening 01/06/2029 [facility]-RSV Vaccine: 60+ Years or (1 - 1-dose 75+ series) 2038 [facility]-Diabetes: Hemoglobin A1C Discontinued 03/11/2023, 03/21/2022, 12/27/2021, Additional history exists HPV Vaccines Aged Out No longer eligi ble based on patient's age to complete this topic [facility]-HIB Vaccines Aged Out No longer e ligible based on patient's age to complete this topic [facility]-Hepatitis A Vaccines Aged Out No longer eligible based on patient's age to complete this topic [facility]-IPV Vaccines Aged Out No longer e ligible based on patient's age to complete this topic [facility]-Rotavirus Vaccines Aged Out No lo nger eligible based on patient's age to complete this topic Procedures Procedure Name Priority Date/Time Associated Diagnosis Comments HEMOGLOBIN A1C Routine 03/11/2023 1:08 PM EDT Prediabetes COLONOSCOPY EXTERNAL RESULT 01/06/2019 from Last 3 Months or Most Recently Relevant to Health Maintenance Results * (ABNORMAL) Hemoglobin A1c (03/11/2023 1:08 PM EDT) Hemoglobin A1c 6.1(H) <5.7 % 03/11/2023 7:45 PM EDT [facility] Blood Venous blood specimen / Unknown Venipuncture / Unknown 03/11/2023 1:08 PM EDT 03/11/2023 1:08 PM EDT Narrative [facility] - 03/11/2023 7:45 PM EDT HA1C Interpretive Data: Diagnosis of Diabetes: Diabetic > or = 6.5% Pre-diabetic 5.7 to 6.4% Non-diabetic < or = 5.6% Glycemic Targets for Type I and Type II Diabetics: Non- Adults <7.0% Adults <6.0% Children and Adolescents <7.5% Source: [place] [employer]. Standards of medical care in diabetes,2017. Diabetes Care.2017:40 (suppl 1):S1-S135. HbA1c assay performed by an ion-exchange chromatography method that is certified traceable to the DCCT. us Ema [facility] BLOOD ORDERABLES Final Re sult [facility] [address] [place] [id number] * COLONOSCOPY EXTERNAL RESULT (01/06/2019) Anatomical Region Laterality Modality Endoscopy Narrative 01/06/2019 Ordered by an unspecified provider. External Provider GI PROCEDURE ORDERABLES Final Result from Last 3 Months or Most Recently Relevant to Health Maintenance Insurance Diana GERONIMO [address] Care Teams Accounting Director Relationship Specialty Start Date End Date Luna Ratliff, BACK GRINDER [address] [place] [address] [facility] - General 01/26/21
--- OUTSIDE RECORDS SUMMARY | 2025-07-29 09:06 | XMS_ITS | Encounter Summary ---
Author Organization [facility] Address [address] [id number] Care Team Providers Care In House Counsel Name Role Phone Luna Ratliff APRN Primary Care Provider [phone] Reason for Visit * Reason Comments Med Refill Encounter Details Date Type Department Care Team (Late st Contact Info) Description 08/16/2024 Refill [facility] [address] [place] [address] Luna Ratliff APRN [address] [place] [address] Mixed hyperlipidemia Social History Tobacco Use Types Packs/Day Years Used Date Smoking Tobacco: Former Cigarettes 0.5 12 0 02/1993 - 02/2005 Passive Smoke Exposure: Past Smokeless Tobacco: Never Alcohol Use Standard Drinks/Week [...] on file documented as of this encounter Miscellaneous Notes * Telephone Encounter - Joyce Francisco - 08/17/2024 1:45 PM EST Patient is no longer with clinic documented in this encounter Plan of Treatment Not on file documented as of this encounter Visit Diagnoses Diagnosis Mixed hyperlipidemia documented in this encounter Additional Health Concerns Assessment Noted Time A fall risk assessment has been complete d for the patient 05/08/2023 3:50 PM EDT documented as of this encounter Care Teams In House Counsel Relationship Specialty Start Date End Date Luna Ratliff APRN [address] [place] [address] PCP - General 01/26/21 documented as of this encounter
--- OUTSIDE RECORDS SUMMARY | 2025-07-29 09:07 | XMS_ITS | Encounter Summary ---
Author Organization [facility] Address [address] [id number] Care Team Providers Care Casting Plug Assembler Name Role Phone Luna Ratliff APRN Primary Care Provider [phone] Reason for Visit * Reason Comments Med Refill Encounter Details Date Type Department Care Team (Late st Contact Info) Description 10/21/2024 Refill Family [facility] Community [facility] [address] [place] [address] Luna Ratliff APRN [address] [place] [address] Mixed hyperlipidemia Social History Tobacco [...] encounter Miscellaneous Notes * Telephone Encounter - Sravanthi Quintanilla - 10/22/2024 2:50 PM EST Attempted to call no answer, left VM documented in this encounter Plan of Treatment Not on file documented as of this encounter Visit Diagnoses Diagnosis Mixed hyperlipidemia documented in this encounter Additional Health Concerns Assessment Noted Time A fall risk assessment has been complete d for the patient 05/08/2023 3:50 PM EDT documented as of this encounter Care Teams Casting Plug Assembler Relationship Specialty Start Date End Date Luna Ratliff APRN [address] [place] [address] PCP - General 01/26/21 documented as of this encounter
--- OUTSIDE RECORDS SUMMARY | 2025-07-29 09:07 | XMS_ITS | Encounter Summary ---
Author Organization [facility] Address [address] [id number] Care Team Providers Care High School Tutor Name Role Phone Luna Ratliff APRN Primary Care Provider [phone] Reason for Visit * Reason Comments Med Refill Encounter Details Date Type Department Care Team (Late st Contact Info) Description 05/29/2024 Refill [place] [facility] [address] [place] [address] Luna Ratliff APRN [address] [place] [address] Arthralgia of multiple joints Social History Tobacco Use Types Packs/Day Years [...] * Telephone Encounter - Joyce Francisco - 05/31/2024 3:48 PM EDT Patient needs to schedule an appointment documented in this encounter Plan of Treatment Not on file documented as of this encounter Visit Diagnoses Diagnosis Arthralgia of multiple joints Pain in joint, multiple sites documented in this encounter Additional Health Concerns Assessment Noted Time A fall risk assessment has been complete d for the patient 05/08/2023 3:50 PM EDT documented as of this encounter Care Teams High School Tutor Relationship Specialty Start Date End Date Luna Ratliff APRN [address] [place] [address] PCP - General 01/26/21 documented as of this encounter
--- OUTSIDE RECORDS SUMMARY | 2025-07-29 09:07 | XMS_ITS | Encounter Summary ---
Author Organization [facility] Address [address] [place] [address] Care Team Providers Care Wealth Management Manager Name Role Phone GaudencioSurindersanti Coreas APRN Primary Care Provider [phone] Encounter Details Date Type Department Care Team (Late st Contact Info) Description 07/27/2024 Orders Only External Location [address] [place] [address] Provider, External Social History Tobacco Use Types Packs/Day Years [...] Procedure Name Priority Date/Time Associated Diagnosis Comments XR OUTSIDE IMAGES 07/27/2024 12:45 PM EST documented in this encounter Results * XR OUTSIDE IMAGES (07/27/2024 12:45 PM EST) Anatomical Region Laterality Modality Radiographic Luciana ging 07/27/2024 12:4 5 PM EST us External Provider IMG XR PROCEDURES Final Result documented in this encounter Visit Diagnoses Not on filedocumented in this encounter Additional Health Concerns Assessment Noted Time A fall risk assessment has been complete d for the patient 05/08/2023 3:50 PM EDT documented as of this encounter Care Teams Wealth Management Manager Relationship Specialty Start Date End Date Luna Ratliff APRN [address] [place] [address] PCP - General 01/26/21 documented as of this encounter
--- OUTSIDE RECORDS SUMMARY | 2025-07-29 09:07 | XMS_ITS | Encounter Summary ---
Author Organization [facility] Address [address] [id number] Care Team Providers Care Loan Representative Name Role Phone Luna Ratliff APRN Primary Care Provider [phone] Reason for Visit * Reason Comments Med Refill Encounter Details Date Type Department Care Team (Late st Contact Info) Description 10/02/2024 Refill [facility] [address] [place] [address] Luna Ratliff APRN [address] [place] [address] Mixed hyperlipidemia Social History Tobacco [...] * Telephone Encounter - Joyce Francisco - 10/05/2024 10:14 AM EST Patient is no longer a patient here at the clinic documented in this encounter Plan of Treatment Not on file documented as of this encounter Visit Diagnoses Diagnosis Mixed hyperlipidemia documented in this encounter Additional Health Concerns Assessment Noted Time A fall risk assessment has been complete d for the patient 05/08/2023 3:50 PM EDT documented as of this encounter Care Teams Loan Representative Relationship Specialty Start Date End Date Luna Ratliff APRN [address] [place] [address] PCP - General 01/26/21 documented as of this encounter
--- OUTSIDE RECORDS SUMMARY | 2025-07-29 09:07 | XMS_ITS | Encounter Summary ---
Author Organization [facility] Address [address] [place] [address] Care Team Providers Care Threat Monitoring Analyst Name Role Phone GaudnecioSurindersanti Coreas APRN Primary Care Provider [phone] Encounter Details Date Type Department Care Team (Late st Contact Info) Description 07/27/2024 Orders Only External Location [address] [place] [address] Provider, External Social History Tobacco Use Types [...] documented as of this encounter Care Teams Threat Monitoring Analyst Relationship Specialty Start Date End Date Luna Ratliff APRN [address] [place] [address] PCP - General 01/26/21 documented as of this encounter
--- OUTSIDE RECORDS SUMMARY | 2025-07-29 09:07 | XMS_ITS | Encounter Summary ---
Author Organization [facility] Address [address] [place] [address] Care Team Providers Care Lpn Rn Name Role Phone Luna Ratliff APRN Primary Care Provider +[phone] Reason for Visit * Reason Comments Med Refill Encounter Details Date Type Department Care Team (Late st Contact Info) Description 04/10/2021 Refill [facility] [address] [place] [address] Karen Hernadnez APRN [address] [place] [address] Social History Tobacco Use Types Packs/Day Years Used Date Smoking Tobacco: Former Cigarettes Smokeless Tobacco: Never Alcohol Use Standard Drinks/Week [...] documented as of this encounter Visit Diagnoses Not on filedocumented in this encounter Care Teams Lpn Rn Relationship Specialty Start Date End Date Luna Ratliff APRN [address] [place] [address] PCP - General 01/26/21 documented as of this encounter
== END 2025-07-29 23:59 | disposition home or self-care (01) ==
LOC: RAD 09:02
PROVIDERS: PCP Internal Medicine; Visit Provider Internal Medicine
DX: M54.9 Dorsalgia, unspecified (principal); R19.02 Left upper quadrant abdominal swelling, mass and lump
CPT/HCPCS: 72070

== ENCOUNTER 2025-08-03 06:51 | Outpatient (CLI) | payer OTHER, SELFPAY ==
--- OUTSIDE RECORDS SUMMARY | 2025-08-03 06:54 | XMS_ITS | Encounter Summary ---
Author Organization [facility] Address [address] [id number] Care Team Providers Care Panel Maker Name Role Phone Luna Ratliff APRN Primary Care Provider [phone] Reason for Visit * Reason Comments Med Refill Encounter Details Date Type Department Care Team (Late st Contact Info) Description 08/16/2024 Refill [facility] Community Medicine [address] [place] [address] Luna Ratliff APRN [address] [place] [address] Mixed hyperlipidemia Social History Tobacco [...] documented as of this encounter Care Teams Panel Maker Relationship Specialty Start Date End Date Luna Ratliff APRN [address] [place] [address] PCP - General 01/26/21 documented as of this encounter
--- OUTSIDE RECORDS SUMMARY | 2025-08-03 06:54 | XMS_ITS | Encounter Summary ---
Author Organization [facility] Address [address] [place] [address] Care Team Providers Care Solid State Tester Name Role Phone Gaudencio Luna Coreas APRN Primary Care Provider [phone] Encounter Details Date Type Department Care Team (Late st Contact Info) Description 09/05/2022 Outside Procedure External Location [address] [place] [address] Provider, Devante [place] Social History Tobacco Use Types Packs/Day Years [...] PM EST Narrative 09/06/2022 7:40 AM EST [address] [address] Name: GUNNER RAMIREZ Exam Date: 09/05/2022 : 1965 Age 57 Gender: M Physician: TEE PONCE Facility: [facility] Facility HSV: Outpatient Exam: MRI SHOULDER W/O [...] Thank you for referring GUNNER RAMIREZ to [facility]. Legally authenticated by MAHSA Guajardo III 2022-09-06 07:27:23 Procedure Note Provider, [facility] - 09/06/[address] [address] Name: GUNNER RAMIREZ Exam Date: 09/05/2022 : 1965 Age 57 Gender: M Physician: TEE PONCE Facility: [facility] Facility HSV: Outpatient Exam: MRI SHOULDER W/O [...] Thank you for referring GUNNER RAMIREZ to [facility]. Legally authenticated by MAHSA Guajardo III 2022-09-06 07:27:23 us Generic [place] Provider IMG MRI PROCEDURES F inal Result documented in this encounter Visit Diagnoses Not on filedocumented in this encounter Additional Health Concerns Assessment Noted Time A fall risk assessment has been complete d for the patient 03/21/2022 7:58 AM EDT documented as of this encounter Care Teams Solid State Tester Relationship Specialty Start Date End Date Luna Ratliff APRN [address] [place] [id number] PCP - General 01/26/21 documented as of this encounter
--- OUTSIDE RECORDS SUMMARY | 2025-08-03 06:54 | XMS_ITS | Encounter Summary ---
Author Organization [facility] Address [address] [place] [address] Care Team Providers Care Communication Technician Name Role Phone Gaudencio Luna Coreas APRN Primary Care Provider +1 [phone] Encounter Details Date Type Department Care Team (Late st Contact Info) Description 09/05/2022 Outside Procedure External Location [address] [place] [address] Provider, Devante [place] Social History Tobacco Use Types Packs/Day Years [...] PM EST Narrative 09/06/2022 7:40 AM EST [address] [address] Name: GUNNER RAMIREZ Exam Date: 09/05/2022 : 1965 Age 57 Gender: M Physician: TEE PONCE Facility: [facility] Facility HSV: Outpatient Exam: MRI [...] Thank you for referring GUNNER RAMIREZ to [facility]. Legally authenticated by MAHSA Guajardo III 2022-09-06 07:27:24 Procedure Note Provider, Generic [place] - 09/06/[address] [address] Name: GUNNER RAMIREZ Exam Date: 09/05/2022 : 1965 Age 57 Gender: M Physician: TEE PONCE Facility: [facility] Facility HSV: Outpatient Exam: MRI [...] Thank you for referring GUNNER RAMIREZ to [facility]. Legally authenticated by MAHSA Guajardo III 2022-09-06 07:27:24 us Generic [place] Provider IMG MRI PROCEDURES F inal Result documented in this encounter Visit Diagnoses Not on filedocumented in this encounter Additional Health Concerns Assessment Noted Time A fall risk assessment has been complete d for the patient 03/21/2022 7:58 AM EDT documented as of this encounter Care Teams Communication Technician Relationship Specialty Start Date End Date Luna Ratliff APRN [address] [place] [address] PCP - General 01/26/21 documented as of this encounter
--- OUTSIDE RECORDS SUMMARY | 2025-08-03 06:54 | XMS_ITS | Clinical Summary ---
Author Organization [facility] Address [address] [place] [address] Care Team Providers Care Machine Bander And Cellophaner Name Role Phone Ratliff, Luna Lyudmila JULISA [...] 2008 Sigmoidoscopy 2008 [facility]-Depression Screening 05/08/2024 05/08/2023 [id number] Vaccine (4 - season) 2025 08/31/2021, 12/27/2020, [...] Adults <6.0% Children and Adolescents <7.5% Source: [place] [employer]. Standards of medical care in diabetes,2017. Diabetes Care.2017:40 (suppl 1):S1-S135. HbA1c assay performed by an ion-exchange chromatography method that is certified traceable to the DCCT. us Ema [facility] AIR BAG BUFFER LAB BLOOD ORDERABLES Final Re sult [facility] [address] [place] [address] * COLONOSCOPY EXTERNAL RESULT (01/06/2019) Anatomical Region Laterality Modality Endoscopy Narrative 01/06/2019 Ordered by an unspecified provider. External Provider GI PROCEDURE ORDERABLES Final Result from Last 3 Months or Most Recently Relevant to Health Maintenance Insurance Diana GERONIMO [address] [place] [address] Care Teams Machine Bander And Cellophaner Relationship Specialty Start Date End Date Luna Ratliff, AIR BAG BUFFER [address] [place] [address] [facility] - General 01/26/21
--- OUTSIDE RECORDS SUMMARY | 2025-08-03 06:54 | XMS_ITS | Encounter Summary ---
Author Organization [facility] Address [address] [id number] Care Team Providers Care Jewelry Jobber Name Role Phone Luna Ratliff APRN Primary Care Provider [phone] Reason for Visit * Reason Comments Med Refill Encounter Details Date Type Department Care Team (Late st Contact Info) Description 05/29/2024 Refill [place] [facility] [address] [place] [address] Luna Ratliff APRN [address] [place] [address] Arthralgia of multiple joints Social [...] documented as of this encounter Care Teams Jewelry Jobber Relationship Specialty Start Date End Date Luna Ratliff APRN [address] [place] [address] PCP - General 01/26/21 documented as of this encounter
--- OUTSIDE RECORDS SUMMARY | 2025-08-03 06:55 | XMS_ITS | Encounter Summary ---
Author Organization [facility] Address [address] [place] [address] Care Team Providers Care Expander Name Role Phone Luna Ratliff APRN Primary Care Provider +1 [phone] Reason for Visit * Reason Comments Med Refill Encounter Details Date Type Department Care Team (Late st Contact Info) Description 04/10/2021 Refill Family [facility] Community Medicine [address] [place] [address] Karen Hernandez APRN [address] [place] [address] Social History Tobacco Use Types [...] on filedocumented in this encounter Care Teams Expander Relationship Specialty Start Date End Date Luna Ratliff APRN [address] [place] [address] PCP - General 01/26/21 documented as of this encounter
--- OUTSIDE RECORDS SUMMARY | 2025-08-03 06:55 | XMS_ITS | Encounter Summary ---
Author Organization [facility] Address [address] [id number] Care Team Providers Care Casket Liner Name Role Phone Luna Ratliff APRN Primary Care Provider [phone] Reason for Visit * Reason Comments Med Refill Encounter Details Date Type Department Care Team (Late st Contact Info) Description 10/21/2024 Refill [facility] Community [facility] [address] [place] [address] Luna Ratliff APRN [address] [place] [address] Mixed hyperlipidemia Social History Tobacco [...] documented as of this encounter Care Teams Casket Liner Relationship Specialty Start Date End Date Luna Ratliff APRN [address] [place] [address] PCP - General 01/26/21 documented as of this encounter
--- OUTSIDE RECORDS SUMMARY | 2025-08-03 06:55 | XMS_ITS | Encounter Summary ---
Author Organization [facility] Address [address] [id number] Care Team Providers Care Emergency Veterinary Technician Name Role Phone Luna Ratliff APRN Primary Care Provider [phone] Reason for Visit * Reason Comments Med Refill Encounter Details Date Type Department Care Team (Late st Contact Info) Description 10/02/2024 Refill [facility] [address] [place] [address] Luna Ratliff APRN [address] [place] [address] Mixed hyperlipidemia Social History Tobacco [...] documented as of this encounter Care Teams Emergency Veterinary Technician Relationship Specialty Start Date End Date Luna Ratliff APRN [address] [place] [address] PCP - General 01/26/21 documented as of this encounter
--- OUTSIDE RECORDS SUMMARY | 2025-08-03 06:55 | XMS_ITS | Encounter Summary ---
Author Organization [facility] Address [address] [place] [address] Care Team Providers Care Adapted Physical Education Teacher Name Role Phone GaudencioSurindersanti Coreas APRN Primary Care Provider +1 [phone] Encounter Details Date Type Department Care Team (Late st Contact Info) Description 07/27/2024 Orders Only External Location [address] [place] [address] Provider, External Social History Tobacco Use Types [...] documented as of this encounter Care Teams Adapted Physical Education Teacher Relationship Specialty Start Date End Date Luna Ratliff APRN [address] [place] [address] PCP - General 01/26/21 documented as of this encounter
--- OUTSIDE RECORDS SUMMARY | 2025-08-03 06:55 | XMS_ITS | Encounter Summary ---
Author Organization [facility] Address [address] [place] [address] Care Team Providers Care Side Framer Name Role Phone GaudencioSurindersanti Coreas APRN Primary Care Provider +1 [phone] Encounter Details Date Type Department Care Team (Late st Contact Info) Description 07/27/2024 Orders Only External Location [address] [place] [address] Provider, External Social History Tobacco Use Types [...] documented as of this encounter Care Teams Side Framer Relationship Specialty Start Date End Date Luna Ratliff APRN [address] [place] [address] PCP - General 01/26/21 documented as of this encounter
--- NOTE | 2025-08-03 07:00 | MR_ITS ---
FINAL REPORT TECHNIQUE: Multiplanar and multisequence imaging of the shoulder was obtained without contrast. CLINICAL HISTORY: Rotator cuff injury. limited rom. weakness in arm. no injury or trauma. shoulder pain xyears. COMPARISON: None FINDINGS: Bones and joints: There is no acute fracture, edema, or pathologic marrow replacement. Acromioclavicular joint degenerative disease is present and there is osteophytosis which narrows the supraspinatus outlet. Rotator cuff: There is a partial tear of the articular surface of the infraspinatus tendon involving approximately 50% of the thickness of that tendon. The infraspinatus tendon is intact. No subscapularis tendon tear. There is no fatty atrophy of the rotator cuff muscles. Labrum: The biceps labral complex is intact. There is an irregular anterior inferior labrum, concerning for a tear. The inferior glenohumeral ligament is intact. There is a tear of the biceps tendon at the biceps labral complex. Other: There is no significant joint effusion. There is a small amount of fluid present in the subdeltoid bursa. IMPRESSION: 1. Tear of the biceps tendon at the biceps labral complex. 2. Irregular anterior inferior labrum concerning for a tear. 3. Partial tear of the articular side of the infraspinatus tendon, involving approximately 50% of the thickness of that tendon. Reviewed, Interpreted and Dictated by Tori Cash MD Transcribed by Karina Gardiner Authenticated and [facility]
--- NOTE | 2025-08-03 07:45 | MR_ITS ---
FINAL REPORT TECHNIQUE: Multiplanar and multisequence imaging of the shoulder was obtained without contrast. CLINICAL HISTORY: Rotator cuff injury. limited rom. weakness in arm. no injury or trauma. shoulder pain xyears. COMPARISON: None FINDINGS: Bones/Joint: Bone marrow signal intensity is normal. There is no fracture, edema, or pathologic marrow replacement. Mild acromioclavicular degenerative changes present. Rotator Cuff: There is no full thickness rotator cuff tear. There is a partial tear of the articular side of the supraspinatus tendon anteriorly, involving approximately 50% of the thickness of the tendon. No full-thickness tears of the infraspinatus tendon are identified. There is no fatty atrophy of the rotator cuff musculature. Labrum: No labral tear is identified. The biceps labral complex is intact. The inferior glenohumeral ligament is intact. Other: There is abnormal signal in the proximal biceps tendon consistent with tendinosis. No definite tear is identified. There is no joint effusion. A small amount of fluid is present in the subdeltoid bursa. Remaining soft tissues are within normal limits. IMPRESSION: 1. Partial articular sided tear of the supraspinatus tendon involving approximately 50% of the thickness of that tendon. 2. Abnormal signal in the proximal biceps tendon consistent with tendinosis. Reviewed, Interpreted and Dictated by Tori Cash MD Transcribed by Karina Gardiner Authenticated and [facility]
== END 2025-08-03 23:59 | disposition home or self-care (01) ==
LOC: RAD 06:52
PROVIDERS: PCP Internal Medicine; Visit Provider Internal Medicine
DX: M75.112 Incomplete rotator cuff tear or rupture of left shoulder, not specified as traumatic (principal); M75.111 Incomplete rotator cuff tear or rupture of right shoulder, not specified as traumatic; S46.212A Strain of muscle, fascia and tendon of other parts of biceps, left arm, initial encounter; R93.6 Abnormal findings on diagnostic imaging of limbs
CPT/HCPCS: 73221

== ENCOUNTER 2025-08-09 08:00 | Outpatient (RCR) | payer OTHER, SELFPAY ==
--- NOTE | 2025-07-20 14:50 | HMH.RHREAS ---
Rehab Reassessment Rehab OP Re-assessment Start: 07/20/25 08:51 Freq: Status: Active Protocol: Document 07/20/25 14:47 TAYLORCONY (Rec: 07/20/25 14:50 TAYLORCONY [id number]) E-signed By Suzy Carrera, OT Rehab Re-assessment Subjective Subjective My shoulders feel better. Objective Objective Notes Patient is a 60-year-old male referred to skilled outpatient occupational therapy services for bilateral shoulder pain. He reports experiencing pain in both shoulders for the past five years, with symptoms progressively worsening. The patient states that MRIs of both shoulders completed approximately 1?2 years ago at another facility revealed tears in both shoulders. A right shoulder X-ray completed at [facility] in July 2024 showed no acute fracture. The patient reports receiving multiple cortisone injections from two different orthopedic surgeons over the past five years and previously participated in therapy, which provided temporary relief. He now presents with recurrent and worsening bilateral shoulder pain, warranting continued skilled OT intervention. The patient has attended therapy sessions twice weekly for the past 30 days, focusing on improving active range of motion (AROM), upper extremity (UE) strengthening, and pain reduction to support return to prior level of function. The patient reports decreased pain and improved tolerance to UE strengthening using weights and machines without difficulty. AROM of both upper extremities is within functional limits (WFL). The patient has requested to continue skilled OT services twice weekly for an additional four weeks to maximize functional gains prior to follow-up with his primary care provider (PCP). Assessment Progress Assessment Progressing as Expected Assessment Notes Patient is demonstrating progress toward goals with decreased pain and improved functional use of bilateral shoulders. Continued skilled OT intervention remains warranted to further improve strength, endurance, and pain management to maximize independence and safety with ADLs and functional tasks. Initial Evaluation 06/22/25 7/10 pain at best 8/10 pain at worst AROM of R UE shoulder Abd: 90 Flex: 110 Er: 50 Ir: 55 AROM of L UE shoulder Abd: 80 Flex: 120 Er: 60 Ir: 60 3-/5 strength throughout QuickDash: 42 Re-Evaluation 07/20/25 5/10 pain at best 6/10 pain at worst AROM of R UE shoulder Abd: 150 Flex: 155 Er: 70 Ir: 60 AROM of L UE shoulder Abd: 149 Flex: 158 Er: 75 Ir: 60 4-/5 strength throughout QuickDash: 38 OT Patient Goals OT Short Term 1. Patient will demonstrate increased bilateral Patient Goals shoulder AROM by at least 10?15 degrees from updated measures in flexion/abduction/ir/er to improve ability to complete overhead ADLs. 2. Patient will report a decrease in shoulder pain by at least 2 points on a 0?10 pain scale during functional reaching tasks. 3. Patient will be independent with home exercise program (HEP) focused on pain management, stretching, and gentle strengthening. 4. Patient will tolerate light resistance exercises with minimal discomfort to promote improved shoulder stability ~20 mins. OT [facility] 1. Patient will demonstrate functional shoulder AROM Goals within normal limits to perform self-care and household activities without pain. 2. Patient will report pain =2/10 during daily activities and sleep. 3. Patient will demonstrate improved upper extremity strength to at least 4+/5 in both shoulders to support overhead and lifting tasks. 4. Patient will be able to complete ADLs and light IADLs independently without limitations from shoulder pain Plan Plan Continue Plan of Care Frequency of Therapy 2x/wk Duration of Therapy 4 weeks Therapeutic Exercise Yes Including Home Exercise Program Manual Therapy Yes Techniques Therapeutic Yes Activities to Return to Previous Functional/Work Level Thermal Modalities Yes Electrical Yes Stimulation Ultrasound/ Yes Phonophoresis Iontophoresis Yes Time and Billing Re-Eval Time 10 Re-Eval Billing 1 Units Charge for OT Yes reassessment? PHYSICIAN CERTIFICATION: I certify the specified therapy services for Seb Ramirez are required, authorized, and reviewed every 30 days.
== END 2025-08-09 23:59 | disposition home or self-care (01) ==
LOC: OT 08:00
PROVIDERS: Visit Provider Internal Medicine
DX: M25.511 Pain in right shoulder (principal); M25.512 Pain in left shoulder
CPT/HCPCS: 97014; 97032; 97110; 97140; 97168; 97530; G0283

== ENCOUNTER 2025-08-12 06:58 | Outpatient (CLI) | payer OTHER, SELFPAY ==
--- NOTE | 2025-08-12 07:00 | MR_ITS ---
FINAL REPORT CLINICAL HISTORY: Left elbow pain COMPARISON: None FINDINGS: Multiplanar and multisequence imaging of the left elbow was obtained without contrast. BONES: There is no acute fracture, contusion or pathologic marrow replacement. Joint space is preserved. There is no joint effusion or loose body. LIGAMENTS: The radial collateral ligament and lateral ulnar collateral ligament are intact. The ulnar collateral ligament proper is intact and there is no fracture of the sublime tubercle. TENDON/MUSCLES: There is abnormal signal intensity within the common extensor tendon at its insertion on the lateral epicondyle consistent with lateral epicondylitis. There is no tendon tear. The common flexor tendon is normal in size and signal intensity at its insertion on the medial epicondyle. There is tendinosis of the distal triceps tendon. There may be a small partial tear along the lateral tendon fibers. There is no complete tendon rupture. There is biceps tendinosis at its insertion. The brachialis tendon is intact. OTHER SOFT TISSUES: There is no abnormal mass or fluid collection. The nerves and vascular structures appear normal. IMPRESSION: Mild lateral epicondylitis. Triceps tendinosis, a small partial tear not excluded. Biceps tendinosis. Reviewed, Interpreted and Dictated by Tori Cash MD Transcribed by Saba Brown Authenticated and [facility]
--- OUTSIDE RECORDS SUMMARY | 2025-08-12 07:00 | XMS_ITS | Encounter Summary ---
Author Organization [facility] Address [address] [place] [address] Care Team Providers Care Incoming Inspector Name Role Phone Luna Ratliff APRN Primary Care Provider [phone] [phone] Reason for Visit * Reason Comments Med Refill Encounter Details Date Type Department Care Team (Late st Contact Info) Description 04/10/2021 Refill [facility] Community [facility] [address] [place] [address] Karen Hernandez APRN [address] [place] [address] Social History Tobacco Use Types [...] on filedocumented in this encounter Care Teams Incoming Inspector Relationship Specialty Start Date End Date Luna Ratliff APRN [address] [place] [address] PCP - General 01/26/21 documented as of this encounter
--- OUTSIDE RECORDS SUMMARY | 2025-08-12 07:00 | XMS_ITS | Encounter Summary ---
Author Organization [facility] Address [address] [id number] Care Team Providers Care Drawer In Hand Name Role Phone Luna Ratliff APRN Primary Care Provider [phone] Reason for Visit * Reason Comments Med Refill Encounter Details Date Type Department Care Team (Late st Contact Info) Description 08/16/2024 Refill [facility] Community [facility] [address] [place] [address] Luna Ratliff APRN [address] [place] [address] Mixed hyperlipidemia Social History Tobacco [...] documented as of this encounter Care Teams Drawer In Hand Relationship Specialty Start Date End Date Lnua Ratliff APRN [address] [place] [address] PCP - General 01/26/21 documented as of this encounter
--- OUTSIDE RECORDS SUMMARY | 2025-08-12 07:00 | XMS_ITS | Encounter Summary ---
Author Organization [facility] Address [address] [place] [address] Care Team Providers Care Straddle Carrier Operator Name Role Phone Gaudencio Luna Coreas APRN Primary Care Provider [phone] Encounter Details Date Type Department Care Team (Late st Contact Info) Description 09/05/2022 Outside Procedure External Location [address] [place] [address] Provider, Devante [place] Social History Tobacco Use Types Packs/Day Years [...] PM EST Narrative 09/06/2022 7:40 AM EST [address] [address] Name: GUNNER RAMIREZ Exam Date: 09/05/2022 : 1965 Age 57 Gender: M Physician: TEE PONCE Facility: [facility] Facility HSV: Outpatient Exam: MRI SHOULDER [...] Thank you for referring GUNNER RAMIREZ to [facility]. Legally authenticated by MAHSA Guajardo III 2022-09-06 07:27:23 Procedure Note Provider, [facility] - 09/06/[address] [address] Name: GUNNER RAMIREZ Exam Date: 09/05/2022 : 1965 Age 57 Gender: M Physician: TEE PONCE Facility: [facility] Facility HSV: Outpatient Exam: MRI SHOULDER [...] De Jesus Authenticated and [facility] Dictated By: Rioc Antunez III Transcribed By: Transcribed On: 09/06/2022 7:27 AM Electronically signed by: Rico Antunez III 09/06/2022 Thank you for referring GUNNER RAMIREZ to [facility]. Legally authenticated by MAHSA Guajardo III 2022-09-06 07:27:23 us Generic [place] Provider IMG MRI PROCEDURES F inal Result documented in this encounter Visit Diagnoses Not on filedocumented in this encounter Additional Health Concerns Assessment Noted Time A fall risk assessment has been complete d for the patient 03/21/2022 7:58 AM EDT documented as of this encounter Care Teams Straddle Carrier Operator Relationship Specialty Start Date End Date Luna Ratliff APRN [address] [place] [address] PCP - General 01/26/21 documented as of this encounter
--- OUTSIDE RECORDS SUMMARY | 2025-08-12 07:00 | XMS_ITS | Clinical Summary ---
Author Organization [facility] Address [address] [place] [address] Care Team Providers Care Research Computing Specialist Name Role Phone Ratliff, Luna Lyudmila JULISA Primary Care Provider [phone] Allergies No known active allergies Medications clotrimazole [...] 2008 Sigmoidoscopy 2008 [facility]-Depression Screening 05/08/2024 05/08/2023 [id number] Vaccine (4 - season) 2025 08/31/2021, 12/27/2020, [...] Adults <6.0% Children and Adolescents <7.5% Source: [place] [employer]. Standards of medical care in diabetes,2017. Diabetes Care.2017:40 (suppl 1):S1-S135. HbA1c assay performed by an ion-exchange chromatography method that is certified traceable to the DCCT. us Ema [facility] TELEPHONE COLLECTOR LAB BLOOD ORDERABLES Final Re sult [facility] [address] [place] [address] * COLONOSCOPY EXTERNAL RESULT (01/06/2019) Anatomical Region Laterality Modality Endoscopy Narrative 01/06/2019 Ordered by an unspecified provider. External Provider GI PROCEDURE ORDERABLES Final Result from Last 3 Months or Most Recently Relevant to Health Maintenance Insurance Diana GERONIMO [address] Care Teams Research Computing Specialist Relationship Specialty Start Date End Date Luna Ratliff, TELEPHONE COLLECTOR [address] [place] [address] [facility] - General 01/26/21
--- OUTSIDE RECORDS SUMMARY | 2025-08-12 07:00 | XMS_ITS | Encounter Summary ---
Author Organization [facility] Address [address] [id number] Care Team Providers Care Pharmacy Aide Name Role Phone Luna Ratliff APRN Primary Care Provider [phone] Reason for Visit * Reason Comments Med Refill Encounter Details Date Type Department Care Team (Late st Contact Info) Description 05/29/2024 Refill [place] [facility] [address] [place] [address] Luna Ratliff APRN [address] [place] [address] Arthralgia of multiple joints Social [...] documented as of this encounter Care Teams Pharmacy Aide Relationship Specialty Start Date End Date Luna Ratliff APRN [address] [place] [address] PCP - General 01/26/21 documented as of this encounter
--- OUTSIDE RECORDS SUMMARY | 2025-08-12 07:00 | XMS_ITS | Encounter Summary ---
Author Organization [facility] Address [address] [place] [address] Care Team Providers Care Automotive Lot Attendant Name Role Phone GaudencioSurindersanti Coreas APRN Primary Care Provider +1 [phone] Encounter Details Date Type Department Care Team (Late st Contact Info) Description 07/27/2024 Orders Only External Location [address] [place] [address] Provider, External Social History Tobacco Use Types [...] documented as of this encounter Care Teams Automotive Lot Attendant Relationship Specialty Start Date End Date Luna Ratliff APRN [address] [place] [address] PCP - General 01/26/21 documented as of this encounter
--- OUTSIDE RECORDS SUMMARY | 2025-08-12 07:00 | XMS_ITS | Encounter Summary ---
Author Organization [facility] Address [address] [place] [address] Care Team Providers Care Rubber Stamp Assembler Name Role Phone Gaudencio Luna Coreas APRN Primary Care Provider +1 [phone] Encounter Details Date Type Department Care Team (Late st Contact Info) Description 09/05/2022 Outside Procedure External Location [address] [place] [address] Provider, Devante [place]ton Social History Tobacco Use Types Packs/Day Years [...] PM EST Narrative 09/06/2022 7:40 AM EST [address] [address] Name: GUNNER RAMIREZ Exam Date: 09/05/2022 : 1965 Age 57 Gender: M Physician: TEE PONCE Facility: [facility] Facility HSV: Outpatient Exam: MRI SHOULDER [...] Thank you for referring GUNNER RAMIREZ to [facility]. Legally authenticated by MAHSA Guajardo III 2022-09-06 07:27:24 Procedure Note Provider, Generic Fairton - 09/06/[address] [address] Name: GUNNER RAMIREZ Exam Date: 09/05/2022 : 1965 Age 57 Gender: M Physician: TEE PONCE Facility: [facility] Facility HSV: Outpatient Exam: MRI SHOULDER [...] 09/06/2022 7:27 AM Electronically signed by: Rico Antunze III 09/06/2022 Thank you for referring GUNNER RAMIREZ to [facility]. Legally authenticated by MAHSA Guajardo III 2022-09-06 07:27:24 us Generic [place] Provider IMG MRI PROCEDURES F inal Result documented in this encounter Visit Diagnoses Not on filedocumented in this encounter Additional Health Concerns Assessment Noted Time A fall risk assessment has been complete d for the patient 03/21/2022 7:58 AM EDT documented as of this encounter Care Teams Rubber Stamp Assembler Relationship Specialty Start Date End Date Luna Ratliff APRN [address] [place] [address] PCP - General 01/26/21 documented as of this encounter
--- OUTSIDE RECORDS SUMMARY | 2025-08-12 07:00 | XMS_ITS | Encounter Summary ---
Author Organization [facility] Address [address] [id number] Care Team Providers Care Stone Chimney Mason Name Role Phone Luan Ratliff APRN Primary Care Provider [phone] Reason for Visit * Reason Comments Med Refill Encounter Details Date Type Department Care Team (Late st Contact Info) Description 10/02/2024 Refill [facility] [address] [place] [address] Luna Ratliff APRN [address] [place] [address] Mixed hyperlipidemia Social History Tobacco [...] documented as of this encounter Care Teams Stone Chimney Mason Relationship Specialty Start Date End Date Luna Ratliff APRN [address] [place] [address] PCP - General 01/26/21 documented as of this encounter
--- OUTSIDE RECORDS SUMMARY | 2025-08-12 07:00 | XMS_ITS | Encounter Summary ---
Author Organization Healthcare Address [address] [place] [address] Care Team Providers Care Seam Feller Name Role Phone GaudencioSurindersanti Coreas APRN Primary Care Provider [phone] [phone] Encounter Details Date Type Department Care Team (Late st Contact Info) Description 07/27/2024 Orders Only External Location [address] [place] [address] Provider, External Social History Tobacco Use Types [...] documented as of this encounter Care Teams Seam Feller Relationship Specialty Start Date End Date Luna Ratliff APRN [address] [place] [address] PCP - General 01/26/21 documented as of this encounter
--- OUTSIDE RECORDS SUMMARY | 2025-08-12 07:00 | XMS_ITS | Encounter Summary ---
Author Organization [facility] Address [address] [id number] Care Team Providers Care Shot Fireman Name Role Phone Luna Ratliff APRN Primary Care Provider [phone] Reason for Visit * Reason Comments Med Refill Encounter Details Date Type Department Care Team (Late st Contact Info) Description 10/21/2024 Refill Family and Community Medicine [address] [place] [address] Luna Ratliff APRN [address] [place] [address] Mixed hyperlipidemia Social History Tobacco [...] documented as of this encounter Care Teams Shot Fireman Relationship Specialty Start Date End Date Luna Ratliff APRN [address] [place] [address] PCP - General 01/26/21 documented as of this encounter
== END 2025-08-12 23:59 | disposition home or self-care (01) ==
LOC: RAD 06:58
PROVIDERS: PCP Internal Medicine; Visit Provider Physician Assistant
DX: M77.12 Lateral epicondylitis, left elbow (principal); M75.22 Bicipital tendinitis, left shoulder; M77.8 Other enthesopathies, not elsewhere classified
CPT/HCPCS: 73221

== ENCOUNTER 2025-09-01 07:12 | Outpatient (CLI) | payer OTHER, SELFPAY ==
--- OUTSIDE RECORDS SUMMARY | 2025-09-01 07:14 | XMS_ITS | Encounter Summary ---
Author Organization [facility] Address [address] [place] [address] Care Team Providers Care Chute Man Name Role Phone Luna Ratliff APRN Primary Care Provider [phone] Reason for Visit * Reason Comments Med Refill Encounter Details Date Type Department Care Team (Late st Contact Info) Description 04/10/2021 Refill Family and Community Medicine [address] [place] [address] Karen Hernandez APRN [address] [place] [address] Social History Tobacco Use Types [...] on filedocumented in this encounter Care Teams Chute Man Relationship Specialty Start Date End Date Luna Ratliff APRN [address] [place] [address] PCP - General 01/26/21 documented as of this encounter
--- OUTSIDE RECORDS SUMMARY | 2025-09-01 07:14 | XMS_ITS | Encounter Summary ---
Author Organization [facility] Address [address] [place] [address] Care Team Providers Care Audio/Video Engineer Name Role Phone Gaudencio Luna Coreas APRN Primary Care Provider [phone] [phone] Encounter Details Date Type Department Care Team (Late st Contact Info) Description 09/05/2022 Outside Procedure External Location [address] [place] [address] Provider, Devante Spray Social History Tobacco Use Types Packs/Day Years [...] EST Narrative 09/06/2022 7:40 AM EST [address] [address] Name: GUNNER RAMIREZ Exam Date: 09/05/2022 : 1965 Age 57 Gender: M Physician: TEE PONCE Facility: [facility] Facility HSV: Outpatient Exam: MRI SHOULDER [...] III 2022-09-06 07:27:24 Procedure Note Provider, Generic Spray - 09/06/[address] [address] Name: GUNNER RAMIREZ Exam Date: 09/05/2022 : 1965 Age 57 Gender: M Physician: TEE PONCE Facility: [facility] Facility HSV: Outpatient Exam: MRI SHOULDER [...] MAHSA Guajardo III 2022-09-06 07:27:24 us Generic Spray Provider IMG MRI PROCEDURES F inal Result documented in this encounter Visit Diagnoses Not on filedocumented in this encounter Additional Health Concerns Assessment Noted Time A fall risk assessment has been complete d for the patient 03/21/2022 7:58 AM EDT documented as of this encounter Care Teams Audio/Video Engineer Relationship Specialty Start Date End Date Luna Ratliff APRN [address] [place] [address] PCP - General 01/26/21 documented as of this encounter
--- OUTSIDE RECORDS SUMMARY | 2025-09-01 07:14 | XMS_ITS | Encounter Summary ---
Author Organization [facility] Address [address] [id number] Care Team Providers Care Hang Gliding Instructor Name Role Phone Luna Ratliff APRN Primary Care Provider [phone] Reason for Visit * Reason Comments Med Refill Encounter Details Date Type Department Care Team (Late st Contact Info) Description 10/02/2024 Refill Family [facility] Community [facility] [address] [place] [address] Luna Ratliff APRN [address] [place] [address] Mixed hyperlipidemia Social History Tobacco [...] documented as of this encounter Care Teams Hang Gliding Instructor Relationship Specialty Start Date End Date Luna Ratliff APRN [address] [place] [address] PCP - General 01/26/21 documented as of this encounter
--- OUTSIDE RECORDS SUMMARY | 2025-09-01 07:14 | XMS_ITS | Encounter Summary ---
Author Organization [facility] Address [address] [place] [address] Care Team Providers Care Box Maker Wood Name Role Phone Gaudencio Luna Coreas APRN Primary Care Provider [phone] [phone] Encounter Details Date Type Department Care Team (Late st Contact Info) Description 09/05/2022 Outside Procedure External Location [address] [place] [address] Provider, Devante [place] Social History Tobacco Use Types Packs/Day Years [...] PM EST Narrative 09/06/2022 7:40 AM EST [address] [address] Name: GUNNER RAMIREZ Exam Date: 09/05/2022 : 1965 Age 57 Gender: M Physician: TEE PONCE Facility: [facility] Facility HSV: Outpatient Exam: MRI [...] Thank you for referring GUNNER RAMIREZ to [facility]. Legally authenticated by MAHSA Guajardo III 2022-09-06 07:27:23 Procedure Note Provider, [facility] - 09/06/[address] [address] Name: GUNNER RAMIREZ Exam Date: 09/05/2022 : 1965 Age 57 Gender: M Physician: TEE PONCE Facility: [facility] Facility HSV: Outpatient Exam: MRI [...] Jesus Authenticated and [facility] Dictated By: Rico Antnuez III Transcribed By: Transcribed On: 09/06/2022 7:27 AM Electronically signed by: Rico Antunez III 09/06/2022 Thank you for referring GUNNER RAMIREZ to [facility]. Legally authenticated by MAHSA Guajardo III 2022-09-06 07:27:23 us Generic [place] Provider IMG MRI PROCEDURES F inal Result documented in this encounter Visit Diagnoses Not on filedocumented in this encounter Additional Health Concerns Assessment Noted Time A fall risk assessment has been complete d for the patient 03/21/2022 7:58 AM EDT documented as of this encounter Care Teams Box Maker Wood Relationship Specialty Start Date End Date Luna Ratliff APRN [address] [place] [address] PCP - General 01/26/21 documented as of this encounter
--- OUTSIDE RECORDS SUMMARY | 2025-09-01 07:14 | XMS_ITS | Encounter Summary ---
Author Organization [facility] Address [address] [place] [address] Care Team Providers Care Kst Operator Name Role Phone GaudencioSurindersanti Coreas APRN Primary Care Provider +1 [phone] Encounter Details Date Type Department Care Team (Late st Contact Info) Description 07/27/2024 Orders Only External Location [address] [place] [address] Provider, External Social History Tobacco Use Types [...] documented as of this encounter Care Teams Kst Operator Relationship Specialty Start Date End Date Luna Ratliff APRN [address] [place] [address] PCP - General 01/26/21 documented as of this encounter
--- OUTSIDE RECORDS SUMMARY | 2025-09-01 07:14 | XMS_ITS | Encounter Summary ---
Author Organization [facility] Address [address] [id number] Care Team Providers Care Route Driver Salesperson Name Role Phone Luna Ratliff APRN Primary Care Provider [phone] Reason for Visit * Reason Comments Med Refill Encounter Details Date Type Department Care Team (Late st Contact Info) Description 05/29/2024 Refill [place] [facility] [address] [place] [address] Luna Ratliff APRN [address] [place] [address] Arthralgia of multiple joints Social [...] documented as of this encounter Care Teams Route Driver Salesperson Relationship Specialty Start Date End Date Luna Ratliff APRN [address] [place] [address] PCP - General 01/26/21 documented as of this encounter
--- OUTSIDE RECORDS SUMMARY | 2025-09-01 07:14 | XMS_ITS | Encounter Summary ---
Author Organization [facility] Address [address] [id number] Care Team Providers Care Solid Plasterer Name Role Phone Luna Ratliff APRN Primary Care Provider [phone] Reason for Visit * Reason Comments Med Refill Encounter Details Date Type Department Care Team (Late st Contact Info) Description 08/16/2024 Refill [facility] Community [facility] [address] [place] [address] Luna Ratliff APRN [address] [place] [address] Mixed hyperlipidemia Social History Tobacco [...] as of this encounter Care Teams Solid Plasterer Relationship Specialty Start Date End Date Luna Ratliff APRN [address] [place] [address] PCP - General 01/26/21 documented as of this encounter
--- OUTSIDE RECORDS SUMMARY | 2025-09-01 07:14 | XMS_ITS | Encounter Summary ---
Author Organization [facility] Address [address] [id number] Care Team Providers Care Insole Tape Stitcher Uco Name Role Phone Luna Ratliff APRN Primary Care Provider [phone] Reason for Visit * Reason Comments Med Refill Encounter Details Date Type Department Care Team (Late st Contact Info) Description 10/21/2024 Refill [facility] Community [facility] [address] [place] [address] Luna Ratliff APRN [address] [place] [address] Mixed hyperlipidemia Social History Tobacco [...] documented as of this encounter Care Teams Insole Tape Stitcher Uco Relationship Specialty Start Date End Date Luna Ratliff APRN [address] [place] [address] PCP - General 01/26/21 documented as of this encounter
--- OUTSIDE RECORDS SUMMARY | 2025-09-01 07:14 | XMS_ITS | Clinical Summary ---
Author Organization [facility] Address [address] [place] [address] Care Team Providers Care Access Rep Name Role Phone Ratliff, Luna Lyudmila JULISA [...] 2008 Sigmoidoscopy 2008 [facility]-Depression Screening 05/08/2024 05/08/2023 [id number] Vaccine (4 - season) 2025 08/31/2021, 12/27/2020, 11/29/2020 [facility]-Influenza Vaccine (#1) 05/16/202510/21, 06/05/2023, 08/17/2022, Additional history exists Colonoscopy 01/06/2029 01/06/2019 [facility]-Colorectal Cancer Screening 01/06/2029 [facility]-RSV Vaccine: 60+ Years or (1 - 1-dose 75+ series) 2038 [facility]-Diabetes: Hemoglobin A1C Discontinued 03/11/2023, 03/21/2022, 12/27/2021, Additional history exists HPV Vaccines (No Doses Required) Completed [facility]-HIB Vaccines Aged Out No longer e [...] 6.1(H) <5.7 % 03/11/2023 7:45 PM EDT [facility] Blood Venous blood specimen / Unknown [...] Adults <6.0% Children and Adolescents <7.5% Source: [place] [employer]. Standards of medical care in diabetes,2017. Diabetes Care.2017:40 (suppl 1):S1-S135. HbA1c assay performed by an ion-exchange chromatography method that is certified traceable to the DCCT. us Ema [facility] BLOOD ORDERABLES Final Re sult [facility] [address] [place] [id number] * COLONOSCOPY EXTERNAL RESULT (01/06/2019) Anatomical Region Laterality Modality Endoscopy Narrative 01/06/2019 Ordered by an unspecified provider. us External Provider GI PROCEDURE ORDERABLES Final Result from Last 3 Months or Most Recently Relevant to Health Maintenance Insurance [facility] [place] [address] Care Teams Access Rep Relationship Specialty Start Date End Date Luna Ratliff APRN [facility] [place] [address] [facility] - General 01/26/21
--- OUTSIDE RECORDS SUMMARY | 2025-09-01 07:14 | XMS_ITS | Encounter Summary ---
Author Organization [facility] Address [address] [place] [address] Care Team Providers Care Software Engineer Sales Name Role Phone GaudencioSurindersanti Coreas APRN Primary Care Provider +1 [phone] Encounter Details Date Type Department Care Team (Late st Contact Info) Description 07/27/2024 Orders Only External Location [address] [place] [address] Provider, External Social History Tobacco Use Types [...] documented as of this encounter Care Teams Software Engineer Sales Relationship Specialty Start Date End Date Luna Ratliff APRN [address] [place] [address] PCP - General 01/26/21 documented as of this encounter
--- NOTE | 2025-09-01 07:30 | MR_ITS ---
FINAL REPORT TECHNIQUE: Multi plantar and multisequence imaging of the cervical spine was obtained before and after the administration of intravenous contrast. CLINICAL HISTORY: Lesion noted on previous exam f/u of lesion COMPARISON: 08/17/2024 FINDINGS: There is normal alignment of the cervical vertebral bodies. Vertebral body height is preserved. Bone marrow signal intensity is normal. There is no edema or pathologic marrow replacement. The signal intensity within the substance of the spinal cord is normal. Abnormality seen on the previous exam is not appreciated today. There is no paraspinal mass or fluid collection. C2-C3: There is no focal disc herniation, central stenosis or neural foraminal narrowing. C3-C4: Annular disc bulge. Mild degenerative endplate change. No central canal stenosis. No right but mild left neural foraminal narrowing. C4-C5: Annular disc bulge with degenerative endplate changes and facet osteoarthropathy. No central canal stenosis. Mild right and moderate left neural foraminal narrowing. C5-C6: Annular disc bulge with degenerative endplate changes and facet osteoarthropathy. Mild central canal stenosis. Severe bilateral neural foraminal narrowing, slightly worse than the prior exam. C6-C7: Annular disc bulge with degenerative endplate changes and facet osteoarthropathy. No central canal stenosis or neural foraminal narrowing. C7-T1: Mild annular disc bulge. Bilateral facet osteoarthropathy. [id number] bilateral neural foraminal narrowing. Postcontrast images reveal no pathologic contrast enhancement. IMPRESSION: Abnormality in the spinal cord at C3 described in the prior exam is not identified on today's study. There are no areas of abnormal cord enhancement. Multilevel degenerative disc disease is slightly worse at C4-5 and C5-6 compared to the prior study. Reviewed, Interpreted and Dictated by Tori Cash MD Transcribed by Joyce Helm Authenticated and [facility]
[2025-09-01 07:42] LABS: Blood Urea Nitrogen 18 mg/dl (9-20); Creatinine,Serum 1.00 mg/dl (0.66-1.25); Estimated Glomerular Filt Rate 76 ml/min (>60); GFR (African American) 92 ML/MIN (>60)
[2025-09-01] MEDS: SODIUM CHLORIDE 0.9% 10ML SYR (RAD ONLY) 10 ML IV (08:15)
[2025-09-01] MEDS: GADOTERIDOL INJ 20ML SYRINGE 14 ML IV (08:15)
== END 2025-09-01 23:59 | disposition home or self-care (01) ==
LOC: RAD 07:13
PROVIDERS: PCP Internal Medicine; Visit Provider Internal Medicine
DX: M50.121 Cervical disc disorder at C4-C5 level with radiculopathy (principal); M50.122 Cervical disc disorder at C5-C6 level with radiculopathy; G95.9 Disease of spinal cord, unspecified
CPT/HCPCS: 36415; 72156; 82565; 84520; A9576